=== PATIENT | male | born 1950 | race Caucasian/White ===

== ENCOUNTER 2019-08-13 11:17 | Emergency (ER) | payer MEDICARE, OTHER, SELFPAY ==
[2019-08-13 11:32] VITALS: BP 155/78; PULSE 73; RESP 13; TEMP 36.8; O2SAT 97
--- NOTE | 2019-08-13 12:01 | DI.RAD.S_ITS ---
PROCEDURE: XR ABDOMEN MIN 2V INDICATIONS: abd pain TECHNIQUE: 2 views of the abdomen were acquired. COMPARISON: None. FINDINGS: Surgical changes and devices: Prostatic seeds are seen overlying the expected location of the prostate within the pelvis. Bowel: No pneumoperitoneum. There are air-filled distended small bowel loops are evident demonstrating air fluid levels. Moderate residual stool is seen within the proximal colon. Soft tissues: No masses; visualized solid organ contours appear normal in size. No suspicious abdominal calcifications. Bones: No suspicious bony abnormalities. Moderate degenerative changes of the mid spine and pelvic joints are present. IMPRESSION: 1. No bowel obstruction. 2. Possible mild constipation. Dictated by: Paul Bean M.D. on 08/13/2019 at 12:21 Approved by: Paul Bean M.D. on 08/13/2019 at 12:22
[2019-08-13 12:17] LABS: Add Manual Diff / Slide Review NO; Basophils Absolute Auto 100 /uL (0-100); Basophils Percent Auto 0.7 % (0-2); Eosinophils Absolute Auto 0 /uL (0-450); Eosinophils Percent Auto 0.3 % (2-4); Hematocrit 50.3 % (41-53); Lymphocytes Absolute Auto 1900 /uL (1100-4500); Lymphocytes Percent Auto 16.6 % (25-40); Mean Corpuscular HGB Conc 33.7 % (30-36); Mean Corpuscular Hemoglobin 29.2 PG (26-34); Mean Corpuscular Volume 86.6 fL (80-100); Monocytes Absolute Auto 700 /uL (0-900); Neutrophils Absolute Auto 8700 /uL (1500-7000); Neutrophils Percent Auto 76.4 % (50-75); Platelet Count 318 X10^3/uL (150-400); Red Blood Cell Count 5.81 X10^6/uL (4.5-5.9); Red Cell Distribution Width 14.5 % (11.6-14.8); White Blood Cell Count 11.4 X10^3/uL (4.5-11.0)
[2019-08-13] MEDS: PANTOPRAZOLE 40 MG VIAL IV (12:20)
[2019-08-13] MEDS: ONDANSETRON 4 MG/2 ML INJ IV (12:21)
[2019-08-13] MEDS: SODIUM CHLORIDE 0.9% 1,000 ML 150 ML IV (12:21)
[2019-08-13 12:33] LABS: Alanine Aminotransferase 32 IU/L (<50); Albumin 4.5 g/dL (3.5-5.0); Albumin Globulin Ratio 1.5 (1.0-2.8); Alkaline Phosphatase 88 U/L (38-126); Amylase 73 U/L (30-110); Aspartate Aminotransferase 36 IU/L (17-59); BUN Creatinine Ratio 22.2 (6-22); Bilirubin Total 0.8 mg/dL (0.2-1.3); Blood Urea Nitrogen 20 mg/dL (9-20); Calcium 9.7 mg/dL (8.4-10.2); Carbon Dioxide 21 mmol/L (22-32); Chloride 103 mmol/L (98-107); Estimated Glomerular Filt Rate > 60.0 mL/min (>60); Glucose 116 mg/dL (80-110); HEMOLYSIS 23 (0-50); Lipase 80 U/L (23-300); Potassium 4.2 mmol/L (3.4-5.1); Sodium 137 mmol/L (137-145); Total Protein 7.5 g/dL (6.3-8.2)
--- NOTE | 2019-08-13 12:45 | ED_ITS ---
HPI - Abdominal Pain <JASPAL Hackett - Last Filed: 08/13/19 17:49> General Chief Complaint: Abdominal Pain Stated Complaint: stomach pain and anxiety Time Seen by Provider: 08/13/19 11:34 Source: patient Mode of arrival: Ambulatory Limitations: no limitations History of Present Illness HPI narrative: The patient is a 68-year-old male who presents with a chief complaint of abdominal pain. He states he has had abdominal pain for several weeks at this point. States he has also 7 from anxiety and has been seen at [facility] on July 18 and for anxiety. He complains of changes in his stools for the past 4 weeks or so, has seen his primary care provider Dr. Veronica for this. He states that he did stool testing, that came back positive, but he is not sure what is positive. He states that he got a letter stating that he needs to schedule an endoscopy or colonoscopy. He states that his pain was really bad today, but he does not want to take medication for it. He has not tried anything to feel better. He states his last bowel movement was this morning. He denies any vomiting but complains of nausea. He denies any dysuria urgency or frequency. He states he does have a history of a cholecystectomy as well as prostate cancer. He states that his pain has been ongoing for the past several weeks and is centered around his abdomen. He states he has a known umbilical hernia. The patient is a difficult, unclear historian and is unable to tell me exactly what brought him to the emergency department today, but makes it very clear that he does not want me to start him on SSRIs or BuSpar as these medications had negative side effects. Related Data Previous Rx's Medication Instructions Recorded hydroxyzine pamoate 50 mg PO TID PRN #14 cap 08/13/19 ondansetron 4 mg PO Q6H PRN #14 tab 08/13/19 Review of Systems <JASPAL Hackett - Last Filed: 08/13/19 17:49> Review of Systems Narrative: GENERAL: Denies chills, fatigue, malaise, fever, sweats. HEENT: Denies sinus pain, ear pain, sore throat, difficulty swallowing, dizziness. RESPIRATORY: Denies dyspnea, cough, wheezing, hemoptysis, sputum. CARDIOVASCULAR: Denies chest pain, palpitations, orthopnea, edema, GASTROINTESTINAL: See HPI : Denies dysuria, frequency, incontinence, hematuria, urinary retention. MUSCULOSKELETAL: denies weakness, joint pain, or bony pain SKIN: Denies rash, skin lesions, or other NEUROLOGIC: Denies weakness, headache, numbness, change in speech, confusion, seizures, incoordination. PSYCHIATRIC: See HPI 12 point review of systems is negative except for those stated above Patient History <JASPAL Hackett - Last Filed: 08/13/19 17:49> Medical History (Updated 08/13/19 @ 15:15 by JASPAL Hackett) Chronic eczema (Acute) Exam <JASPAL Hackett - Last Filed: 08/13/19 17:49> Narrative Exam Narrative: GENERAL: Obese male pacing around room HEAD: Atraumatic. Normocephalic. No temporal or scalp tenderness. EYES: Pupils equal round and reactive. Extraocular motions intact. No scleral icterus. No injection or drainage. ENT: Nose without bleeding, purulent drainage or septal hematoma. Throat without erythema, tonsillar hypertrophy or exudate. Uvula midline. Airway patent. NECK: Trachea midline. No JVD or lymphadenopathy. Supple, nontender, no meningeal signs. CARDIOVASCULAR: Regular rate and rhythm without murmurs, gallops, or rubs. RESPIRATORY: Clear to auscultation. Breath sounds equal bilaterally. No wheezes, rales, or rhonchi. No cough. No increased respiratory effort stridor. GASTROINTESTINAL: Abdomen soft, active bowel sounds all 4 quadrants, nondistended. No hepato-splenomegaly, or palpable masses. No guarding. No pain at McBurney's point pain diffuse tenderness to palpation. EXTREMITIES: No clubbing, cyanosis, or edema. No joint tenderness, effusion, or edema noted. BACK: Nontender without deformity or crepitance. No flank tenderness. NEURO: AOx3. SKIN: No rash or erythema. Initial Vital Signs Initial Vital Signs: Vital Signs Temperature 98.3 F 08/13/19 11:32 Pulse Rate 73 08/13/19 11:32 Respiratory Rate 13 08/13/19 11:32 Blood Pressure 155/78 H 08/13/19 11:32 Pulse Oximetry 97 08/13/19 11:32 <DO Theresa Uriostegui Last Filed: 08/16/19 07:24> Initial Vital Signs Initial Vital Signs: Vital Signs Temperature 98.3 F 08/13/19 11:32 Pulse Rate 73 08/13/19 11:32 Respiratory Rate 13 08/13/19 11:32 Blood Pressure 155/78 H 08/13/19 11:32 Pulse Oximetry 97 08/13/19 11:32 Course <JOSE Hackett-BC - Last Filed: 08/13/19 17:49> Orders Ordered: Discontinued Medications Al Hydrox/Mg Hydrox/Simethicone 20 ml/ Lidocaine HCl 15 ml 0 ml PO NOW ONE Stop: 08/13/19 14:22 Last Admin: 08/13/19 14:46 Dose: 15 ml Documented by: SADIA Hydroxyzine Pamoate (Vistaril) 50 mg PO NOW ONE Stop: 08/13/19 14:20 Last Admin: 08/13/19 14:46 Dose: 50 mg Documented by: SADIA Sodium Chloride (Normal Saline 0.9%) 1,000 mls @ 150 mls/hr IV CONT PIPPA Last Infusion: 08/13/19 15:51 Dose: 150 mls/hr Documented by: Admin: 08/13/19 12:21 Dose: 150 mls/hr Documented by: SADIA Magnesium Citrate (Magnesium Citrate) 300 ml PO NOW ONE Stop: 08/13/19 15:16 Last Admin: 08/13/19 15:51 Dose: 300 ml Documented by: SADIA Morphine Sulfate (Morphine) 4 mg IV NOW ONE Stop: 08/13/19 13:15 Last Admin: 08/13/19 13:30 Dose: 4 mg Documented by: SADIA Ondansetron HCl (Zofran) 4 mg IV NOW ONE Stop: 08/13/19 12:02 Last Admin: 08/13/19 12:21 Dose: 4 mg Documented by: SADIA Pantoprazole Sodium (Protonix) 40 mg IV NOW ONE Stop: 08/13/19 12:02 Last Admin: 08/13/19 12:20 Dose: 40 mg Documented by: SADIA Simethicone (Mylicon) 80 mg PO QID PRN PRN Reason: Flatulence Last Admin: 08/13/19 14:46 Dose: 80 mg Documented by: SADIA Vital Signs Vital signs: Vital Signs - 8 hr 08/13/19 11:32 08/13/19 15:53 Temperature 98.3 F Pulse Rate 73 68 Respiratory Rate 13 12 Blood Pressure 155/78 H Blood Pressure [Right Arm] 150/68 H Pulse Oximetry 97 98 <Antonia Araiza, - Last Filed: 08/16/19 07:24> Orders Ordered: Discontinued Medications Al Hydrox/Mg Hydrox/Simethicone 20 ml/ Lidocaine HCl 15 ml 0 ml PO NOW ONE Stop: 08/13/19 14:22 Last Admin: 08/13/19 14:46 Dose: 15 ml Documented by: SADIA Hydroxyzine Pamoate (Vistaril) 50 mg PO NOW ONE Stop: 08/13/19 14:20 Last Admin: 08/13/19 14:46 Dose: 50 mg Documented by: SADIA Sodium Chloride (Normal Saline 0.9%) 1,000 mls @ 150 mls/hr IV CONT PIPPA Last Infusion: 08/13/19 15:51 Dose: 150 mls/hr Documented by: Admin: 08/13/19 12:21 Dose: 150 mls/hr Documented by: SADIA Magnesium Citrate (Magnesium Citrate) 300 ml PO NOW ONE Stop: 08/13/19 15:16 Last Admin: 08/13/19 15:51 Dose: 300 ml Documented by: SADIA Morphine Sulfate (Morphine) 4 mg IV NOW ONE Stop: 08/13/19 13:15 Last Admin: 08/13/19 13:30 Dose: 4 mg Documented by: SADIA Ondansetron HCl (Zofran) 4 mg IV NOW ONE Stop: 08/13/19 12:02 Last Admin: 08/13/19 12:21 Dose: 4 mg Documented by: SADIA Pantoprazole Sodium (Protonix) 40 mg IV NOW ONE Stop: 08/13/19 12:02 Last Admin: 08/13/19 12:20 Dose: 40 mg Documented by: SADIA Simethicone (Mylicon) 80 mg PO QID PRN PRN Reason: Flatulence Last Admin: 08/13/19 14:46 Dose: 80 mg Documented by: SADIA Vital Signs Vital signs: Vital Signs - 8 hr 08/13/19 11:32 08/13/19 15:53 Temperature 98.3 F Pulse Rate 73 68 Respiratory Rate 13 12 Blood Pressure 155/78 H Blood Pressure [Right Arm] 150/68 H Pulse Oximetry 97 98 MDM - Abdominal Pain <JOSE Hackett- - Last Filed: 08/13/19 17:49> Lab Data Result diagrams: 08/13/19 12:02 08/13/19 12:02 Labs: Lab Results 08/13/19 08/13/19 Range/Units 12:02 12:02 WBC 11.4 H (4.5-11.0) X10^3/uL RBC 5.81 (4.5-5.9) X10^6/uL Hgb 17.0 (13.5-17.5) g/dL Hct 50.3 (41-53) % MCV 86.6 (80-100) fL MCH 29.2 (26-34) PG MCHC 33.7 (30-36) % RDW 14.5 (11.6-14.8) % Plt Count 318 (150-400) X10^3/uL Neut % (Auto) 76.4 H (50-75) % Lymph % (Auto) 16.6 L (25-40) % [place] % (Auto) 6.0 (3-14) % Eos % (Auto) 0.3 L (2-4) % Baso % (Auto) 0.7 (0-2) % Neut # (Auto) 8700 H (5971-3743) /uL Lymph # (Auto) 1900 (7510-1600) /uL [place] # (Auto) 700 (0-900) /uL Eos # (Auto) 0 (0-450) /uL Baso # (Auto) 100 (0-100) /uL Sodium 137 (137-145) mmol/L Potassium 4.2 (3.4-5.1) mmol/L Chloride 103 (98-107) mmol/L Carbon Dioxide 21 L (22-32) mmol/L BUN 20 (9-20) mg/dL Creatinine 0.90 (0.66-1.25) mg/dL Estimated GFR > 60.0 (>60) mL/min BUN/Creatinine Ratio 22.2 H (6-22) Glucose 116 H (80-110) mg/dL Calcium 9.7 (8.4-10.2) mg/dL Total Bilirubin 0.8 (0.2-1.3) mg/dL AST 36 (17-59) IU/L ALT 32 (<50) IU/L Alkaline Phosphatase 88 (38-126) U/L Total Protein 7.5 (6.3-8.2) g/dL Albumin 4.5 (3.5-5.0) g/dL Globulin 3.0 (1.7-4.1) g/dL Albumin/Globulin Ratio 1.5 (1.0-2.8) Amylase 73 (30-110) U/L Lipase 80 (23-300) U/L Point of care testing: Urine Dip Bedside Urine Glucose Negative Bedside Urine Bilirubin - Negative Bedside Urine Ketone +/- 5 Urine Specific [place] 1.005 Bedside Urine Occult Blood - Negative Bedside Urine pH 7.0 Bedside Urine Protein - Negative Bedside Urine Urobilinogen - Negative Bedside Urine Nitrite - Negative Bedside Urine Leukocytes - Negative Esterase Imaging Data Abdominal x-ray: Radiologist's impression: CT scan - abdomen: Radiologist's impression: [place] [address] CT Scan Report Signed Patient: Boris Humphreys PMR#: [id number] : 1950Acct:[id number] Age/Sex: 68 / MDate of Service: 08/13/19 Loc: ED Accession Number: [id number] Procedure: CT abdomen pelvis w con Ordering Provider: Antonia Cooper BRIDGE MAINTAINER-BC PROCEDURE: CT ABDOMEN PELVIS W CON INDICATIONS: abd pain TECHNIQUE: After the administration of oral and intravenous contrast, 5 mm thick sections acquired from the diaphragms to the symphysis. 5 mm thick coronal and sagittal reformats were performed. For radiation dose reduction, the following was used: automated exposure control, adjustment of mA and/or kV according to patient size. COMPARISON: None. FINDINGS: Image quality: Excellent. ABDOMEN: Lung bases: Lung bases are clear. Heart size is normal. Solid organs: Liver is normal in size and enhancement. Biliary system is non- dilated. Pancreas enhances normally. Spleen is normal in size and enhancement. No adrenal nodules. Kidneys are normal in size and enhancement, without hydronephrosis. Peritoneum and bowel: The stomach is unremarkable. The small bowel loops are nondilated. Prominent diverticulum appears to be present involving the 2nd portion of the duodenum. The colon is grossly within normal limits. However, a distal colonic diver ticulosis is evident without surrounding inflammation to suggest diverticulitis. No free fluid, loculated fluid collection or free air is evident. There is a moderate-sized periumbilical hernia. An additional small supraumbilical ventral hernia is also evident. Nodes and vessels: No retroperitoneal or mesenteric adenopathy. Aorta and inferior vena cava are normal in caliber. Incidental note is made of a retroaortic left renal vein. Bones: No acute fracture or suspicious osseous lesion is evident. Moderate multilevel degenerative changes of the mid spine are more prominent involving the lower lumbar spine and predominantly seen involving the facet joints. PELVIS: Genitourinary: Bladder wall thickness is normal. Prostatic seeds are seen within the prostate which is not enlarged. A penile calcification is incidentally noted. Miscellaneous: No inguinal hernias or adenopathy. No free fluid or loculated fluid collection is appreciated. There may be postoperative changes within the right inguinal region. A few prominent vessels within this region are identified with areas of mild stranding. No loculated fluid collections are appreciated. Bones: No suspicious bony lesions. No acute pelvic fracture is identified. Moderate degenerative changes of both hips are present. There also are moderate degenerative changes of the other pelvic joints. IMPRESSION: 1. No definite acute abnormality within the abdomen or pelvis. 2. Distal colonic diverticulosis without diverticulitis. 3. No bowel obstruction. 4. Fat-containing periumbilical and small supraumbilical ventral hernias. Dictated by: Paul Bean M.D. on 08/13/2019 at 13:06 Approved by: Paul Bean M.D. on 08/13/2019 at 13:[address] [facility] Narrative Medical decision making narrative: The patient is a 68-year-old male who presents with a chief complaint of 3-4 weeks of abdominal pain. He has been to an outside facility twice for this last month. He has no signs of systemic illness, no fever, no leukocytosis. X-ray shows no small-bowel obstruction, but constipation. Given the patient's continued pain, I did obtain a CT which had no acute findings. The patient is very perseverative, tangential and very anxious in the emergency department the declines any anxiety medications. I believe that his symptoms are exacerbated by his anxiety. I discussed at length dietary changes including high-fiber diet, plenty of water etc I did give him magnesium citrate on discharge. I also given prescription of Zofran. Encouraged strict PCP follow-up the next few days. Discussed return precautions of inability keep down fluids, abdominal pain with fever, concern of heart attack or stroke. Patient and friend state understanding of return precautions as well as follow-up care and have no questions or concerns upon discharge. <Antonia Araiza, - Last Filed: 08/16/19 07:24> Lab Data Labs: Lab Results 08/13/19 08/13/19 Range/Units 12:02 12:02 WBC 11.4 H (4.5-11.0) X10^3/uL RBC 5.81 (4.5-5.9) X10^6/uL Hgb 17.0 (13.5-17.5) g/dL Hct 50.3 (41-53) % MCV 86.6 (80-100) fL MCH 29.2 (26-34) PG MCHC 33.7 (30-36) % RDW 14.5 (11.6-14.8) % Plt Count 318 (150-400) X10^3/uL Neut % (Auto) 76.4 H (50-75) % Lymph % (Auto) 16.6 L (25-40) % [place] % (Auto) 6.0 (3-14) % Eos % (Auto) 0.3 L (2-4) % Baso % (Auto) 0.7 (0-2) % Neut # (Auto) 8700 H (0560-2080) /uL Lymph # (Auto) 1900 (9763-9280) /uL [place] # (Auto) 700 (0-900) /uL Eos # (Auto) 0 (0-450) /uL Baso # (Auto) 100 (0-100) /uL Sodium 137 (137-145) mmol/L Potassium 4.2 (3.4-5.1) mmol/L Chloride 103 (98-107) mmol/L Carbon Dioxide 21 L (22-32) mmol/L BUN 20 (9-20) mg/dL Creatinine 0.90 (0.66-1.25) mg/dL Estimated GFR > 60.0 (>60) mL/min BUN/Creatinine Ratio 22.2 H (6-22) Glucose 116 H (80-110) mg/dL Calcium 9.7 (8.4-10.2) mg/dL Total Bilirubin 0.8 (0.2-1.3) mg/dL AST 36 (17-59) IU/L ALT 32 (<50) IU/L Alkaline Phosphatase 88 (38-126) U/L Total Protein 7.5 (6.3-8.2) g/dL Albumin 4.5 (3.5-5.0) g/dL Globulin 3.0 (1.7-4.1) g/dL Albumin/Globulin Ratio 1.5 (1.0-2.8) Amylase 73 (30-110) U/L Lipase 80 (23-300) U/L Point of care testing: Urine Dip Bedside Urine Glucose Negative Bedside Urine Bilirubin - Negative Bedside Urine Ketone +/- 5 Urine Specific [place] 1.005 Bedside Urine Occult Blood - Negative Bedside Urine pH 7.0 Bedside Urine Protein - Negative Bedside Urine Urobilinogen - Negative Bedside Urine Nitrite - Negative Bedside Urine Leukocytes - Negative Esterase Discharge Plan Departure Patient Disposition: Home Clinical Impression: Anxiety Abdominal pain Qualifiers: Abdominal location: generalized Qualified Code(s): R10.84 - Generalized abdominal pain Constipation Qualifiers: Constipation type: other constipation type Qualified Code(s): K59.09 - Other constipation Discharge Date/Time: 08/13/19 15:55 Instructions: Constipation (Alternative Therapy), DI for Abdominal Pain-Adult, DI for Constipation, DI for Anxiety -- Adult Activity Restrictions/Additional Instructions: Please follow up with primary care provider in the next few days. He can also follow up with somebody in the clinic. Your imaging today came back normal, other than constipation. We have given you a dose of constipation medication to take when you get home. Be sure to increase her fiber intake, you can take a supplement such as MiraLax and be sure your hydrated. I have given you medication to take as needed for anxiety. Be aware this can be sedating. Do not take it along with Benadryl. I have also given you a prescription for nausea. Please come back to emergency department for any acute concerns such as concern of heart attack or stroke, thoughts of hurting herself or anybody Prescriptions: New ondansetron 4 mg tablet,disintegrating 4 mg PO Q6H PRN (Reason: nausea and vomiting) Qty: 14 RF: 0 hydroxyzine pamoate 50 mg capsule 50 mg PO TID PRN (Reason: anxiety) Qty: 14 RF: 0 Referrals: Miki Veronica MD [Non-Staff] -
--- NOTE | 2019-08-13 13:15 | DI.CT.S_ITS ---
PROCEDURE: CT ABDOMEN PELVIS W CON INDICATIONS: abd pain TECHNIQUE: After the administration of oral and intravenous contrast, 5 mm thick sections acquired from the diaphragms to the symphysis. 5 mm thick coronal and sagittal reformats were performed. For radiation dose reduction, the following was used: automated exposure control, adjustment of mA and/or kV according to patient size. COMPARISON: None. FINDINGS: Image quality: Excellent. ABDOMEN: Lung bases: Lung bases are clear. Heart size is normal. Solid organs: Liver is normal in size and enhancement. Biliary system is non-dilated. Pancreas enhances normally. Spleen is normal in size and enhancement. No adrenal nodules. Kidneys are normal in size and enhancement, without hydronephrosis. Peritoneum and bowel: The stomach is unremarkable. The small bowel loops are nondilated. Prominent diverticulum appears to be present involving the 2nd portion of the duodenum. The colon is grossly within normal limits. However, a distal colonic diverticulosis is evident without surrounding inflammation to suggest diverticulitis. No free fluid, loculated fluid collection or free air is evident. There is a moderate-sized periumbilical hernia. An additional small supraumbilical ventral hernia is also evident. Nodes and vessels: No retroperitoneal or mesenteric adenopathy. Aorta and inferior vena cava are normal in caliber. Incidental note is made of a retroaortic left renal vein. Bones: No acute fracture or suspicious osseous lesion is evident. Moderate multilevel degenerative changes of the mid spine are more prominent involving the lower lumbar spine and predominantly seen involving the facet joints. PELVIS: Genitourinary: Bladder wall thickness is normal. Prostatic seeds are seen within the prostate which is not enlarged. A penile calcification is incidentally noted. Miscellaneous: No inguinal hernias or adenopathy. No free fluid or loculated fluid collection is appreciated. There may be postoperative changes within the right inguinal region. A few prominent vessels within this region are identified with areas of mild stranding. No loculated fluid collections are appreciated. Bones: No suspicious bony lesions. No acute pelvic fracture is identified. Moderate degenerative changes of both hips are present. There also are moderate degenerative changes of the other pelvic joints. IMPRESSION: 1. No definite acute abnormality within the abdomen or pelvis. 2. Distal colonic diverticulosis without diverticulitis. 3. No bowel obstruction. 4. Fat-containing periumbilical and small supraumbilical ventral hernias. Dictated by: Paul Bean M.D. on 08/13/2019 at 13:06 Approved by: Paul Bean M.D. on 08/13/2019 at 13:12
[2019-08-13] MEDS: MORPHINE 4 MG/ML INJ IV (13:30)
[2019-08-13] MEDS: hydrOXYzine pamoate 25 MG CAPSULE 50 MG PO (14:46)
[2019-08-13] MEDS: MAG HYDROX/ALUMINUM/SIMETH SUS 20 ML, LIDOCAINE VISCOUS 2% 15 ML PO (14:46)
[2019-08-13] MEDS: SIMETHICONE 80 MG TABLET PO (14:46)
--- NOTE | 2019-08-13 14:58 | PC.NURSE ---
Patient anxious. I am so overwhelmed. It is hard for me to go to the store. I am just worrying about everything. Patient has friend at bedside that is providing helpful and supportive reassurance. Encouraged patient to focus on the things he can control at the present time such as his diet to assist in his bowel movements. Discussed with patient how worrying and anxiety can add to his stomach pains and physical symptoms
[2019-08-13] MEDS: MAGNESIUM CITRATE 300 ML SOLUTION PO (15:51)
[2019-08-13 15:53] VITALS: BP 150/68; PULSE 68; RESP 12; O2SAT 98
== END 2019-08-13 15:55 | disposition home or self-care (01) ==
PROVIDERS: Emergency Provider Nurse Practitioner Family
DX: F41.9 Anxiety disorder, unspecified (principal); R10.84 Generalized abdominal pain; K59.09 Other constipation; R79.89 Other specified abnormal findings of blood chemistry
CPT/HCPCS: 36415; 74019; 74177; 80053; 81003; 82150; 83690; 85025; 96374; 96375; 96376; 99283; 99285; C9113; J2270; J2405; Q9967

== ENCOUNTER 2019-08-22 11:45 | Emergency (ER) | payer MEDICARE, OTHER, SELFPAY ==
[2019-08-22 13:00] VITALS: BP 152/86; PULSE 73; RESP 28; TEMP 36; O2SAT 98
[2019-08-22 15:00] VITALS: BP 140/73; PULSE 64; RESP 17; O2SAT 98
--- NOTE | 2019-08-22 15:07 | ED_ITS ---
HPI - Anxiety <Qi SequeiraRYAN - Last Filed: 08/22/19 21:14> General Chief Complaint: Anxiety Stated Complaint: Severe stomach pain Time Seen by Provider: 08/22/19 14:46 Mode of arrival: Ambulatory History of Present Illness HPI narrative: 68-year-old male with a history of anxiety presents emergency department complaining of increased anxiety, epigastric pain, abdominal discomfort. He states he has had multiple episodes of anxiety over the past month and was seated at [facility] on Jul 18 and and here on 08/13 for the same (abdominal CT and abdominal x-ray mild constipation without acute etiology). Patient was discharged with hydroxyzine which he has been taking over the past week in states that this has helped him tremendously. He also states that he has other things in the works to do with his anxiety but does not elaborate on this. He states his recently and he has been having increased bouts of anxiety any is ?unsure with anxiety feels like?. Patient states he woke up this morning feeling extremely anxious and has not eaten any food sent this morning which he feels that this is contributing to his abdominal pain. Patient then felt a sudden pain in his right lower quadrant and had worse amber anxiety that made him shake, he then went over to the neighbor's who brought him here. He states his anxiety has increased as he has been waiting in the waiting room for the past few hours. He denies any nausea, vomiting, diarrhea, chest pain, shortness of breath, dizziness, vision changes, fevers, or other concerns. Patient states he has had a normal bowel movement this morning and has been taking stool softeners for the past week which have been helping. Patient denies a SI or HI Related Data Home Medications Medication Instructions Recorded Confirmed pravastatin 10 mg tablet 10 mg PO DAILY 08/24/19 08/24/19 tamsulosin 0.4 mg capsule 0.4 mg PO DAILY 08/24/19 08/24/19 Previous Rx's Medication Instructions Recorded hydroxyzine pamoate 50 mg PO TID PRN #14 cap 08/13/19 ondansetron 4 mg PO Q6H PRN #14 tab 08/13/19 hydroxyzine HCl 25 mg PO TID PRN #30 tab 08/22/19 Allergies Allergy/AdvReac Type Severity Reaction Status Date / Time No Known Drug Allergies Allergy Verified 08/24/19 11:35 Review of Systems <RYAN Ortega - Last Filed: 08/22/19 21:14> Review of Systems Narrative: REVIEW OF SYSTEMS: GENERAL: Denies fever, chills, malaise, or wt. loss. HENT: No head trauma, sore throat, or dysphagia. EYES: No loss of vision, double vision, eye pain, or irritation. CARDIOVASCULAR: No chest pain, palpitations, or orthopnea. RESPIRATORY: No shortness of breath or cough. GASTROINTESTINAL: Complains of abdominal discomfort, see HPI GENITOURINARY: No flank pain, urinary incontinence, hesitancy, frequency, or dysuria. MUSCULOSKELETAL: No pain, weakness, or trauma. INTEGUMENTARY: No rash, lesions, or pruritus. NEURO: No numbness, tingling, memory loss, confusion, or headaches. PSYCH: Complains of increased anxiety, see HPI. Patient History <RYAN Ortega - Last Filed: 08/22/19 21:14> Medical History Chronic eczema (Acute) Substance Use Type: does not use Exam <RYAN Ortega - Last Filed: 08/22/19 21:14> Narrative Exam Narrative: PHYSICAL EXAMINATION: GENERAL: Well groomed, alert, and cooperative. Answers questions promptly and appropriately. Vital signs noted. HENT: Normocephalic, atraumatic. Hearing intact. Oral mucosa is pink and moist. EYES: Conjunctiva pink, sclera white, no periorbital swelling. CARDIOVASCULAR: S1 and S2 sounds normal. Regular rate and rhythm, no murmurs, clicks, or bruits. No pedal edema. RESPIRATORY: Normal respiratory rate, trachea midline, airway patent. No stridor, nasal flaring or accessory muscle use. Lungs are clear in all [place] without wheeze, rhonchi, or crackles. GASTROINTESTINAL: Bowel sounds normoactive. Abdomen is soft and tenderness noted to epigastric region, no tenderness to RUQ, RLQ, or LLQ. No organomegaly, no palpable masses. GENITALURINARY: No flank tenderness. MUSCULOSKELETAL: Normal gait and coordination. Equal tone and mass bilaterally. EXTREMITIES: CMS intact, no pedal edema. SKIN: Warm, dry, soft, appropriate color for ethnicity. No lesions, rashes, or wounds. NEURO: Alert and Oriented X 3. Good coordination. No ataxia, or sensory deficits, or cognitive issues. PSYCH: Patient has pressured speech, his hands are shaking when he started describing his anxiety, however, his tremor ceased when he is talking. Patient appears extremely anxious. Initial Vital Signs Initial Vital Signs: Vital Signs Temperature 96.8 F L 08/22/19 13:00 Pulse Rate 73 08/22/19 13:00 Respiratory Rate 28 H 08/22/19 13:00 Blood Pressure 152/86 H 08/22/19 13:00 Pulse Oximetry 98 08/22/19 13:00 <Antonia Araiza DO - Last Filed: 08/27/19 18:12> Initial Vital Signs Initial Vital Signs: Vital Signs Temperature 96.8 F L 08/22/19 13:00 Pulse Rate 73 08/22/19 13:00 Respiratory Rate 28 H 08/22/19 13:00 Blood Pressure 152/86 H 08/22/19 13:00 Pulse Oximetry 98 08/22/19 13:00 Course <RYAN Ortega - Last Filed: 08/22/19 21:14> Course Course Narrative: Patient was given 0.5 mg of Ativan IV, he states his symptoms resolved completely after this and he is feeling much better. He denies any abdominal pain at this time. He was given an additional 0.5mg of Ativan before discharge. His neighbor was at the bedside giving him a ride home. Orders Ordered: Discontinued Medications Lorazepam (Ativan) 0.5 mg IV NOW ONE Stop: 08/22/19 15:05 Last Admin: 08/22/19 15:43 Dose: 0.5 mg Documented by: THOMAS Lorazepam (Ativan) 0.5 mg IV NOW ONE Stop: 08/22/19 16:45 Last Admin: 08/22/19 17:02 Dose: 0.5 mg Documented by: SADIA Consultations Consultation #1: Patient staffed with Dr. Araiza Vital Signs Vital signs: Vital Signs - 8 hr 08/22/19 15:00 08/22/19 17:23 08/22/19 17:25 Pulse Rate 64 74 74 Respiratory Rate 17 16 18 Blood Pressure 110/78 Blood Pressure [Right Arm] 140/73 116/78 Pulse Oximetry 98 97 97 <Antonia Araiza DO - Last Filed: 08/27/19 18:12> Orders Ordered: Discontinued Medications Lorazepam (Ativan) 0.5 mg IV NOW ONE Stop: 08/22/19 15:05 Last Admin: 08/22/19 15:43 Dose: 0.5 mg Documented by: THOMAS Lorazepam (Ativan) 0.5 mg IV NOW ONE Stop: 08/22/19 16:45 Last Admin: 08/22/19 17:02 Dose: 0.5 mg Documented by: SADIA Vital Signs Vital signs: Vital Signs - 8 hr 08/22/19 15:00 08/22/19 17:23 08/22/19 17:25 Pulse Rate 64 74 74 Respiratory Rate 17 16 18 Blood Pressure 110/78 Blood Pressure [Right Arm] 140/73 116/78 Pulse Oximetry 98 97 97 MDM - Anxiety <RYAN Ortega - Last Filed: 08/22/19 21:14> Medical Records Attestation: I reviewed the patient's medical records. Lab Data Attestation: I reviewed the patient's lab results. Result diagrams: 08/22/19 15:15 08/22/19 15:15 Labs: Lab Results 08/22/19 08/22/19 Range/Units 15:15 15:15 WBC 8.1 (4.5-11.0) X10^3/uL RBC 5.54 (4.5-5.9) X10^6/uL Hgb 16.3 (13.5-17.5) g/dL Hct 47.5 (41-53) % MCV 85.8 (80-100) fL MCH 29.4 (26-34) PG MCHC 34.3 (30-36) % RDW 14.4 (11.6-14.8) % Plt Count 298 (150-400) X10^3/uL Neut % (Auto) 65.0 (50-75) % Lymph % (Auto) 25.8 (25-40) % [place] % (Auto) 7.9 (3-14) % Eos % (Auto) 0.5 L (2-4) % Baso % (Auto) 0.8 (0-2) % Neut # (Auto) 5300 (2059-6559) /uL Lymph # (Auto) 2100 (1269-3020) /uL [place] # (Auto) 600 (0-900) /uL Eos # (Auto) 0 (0-450) /uL Baso # (Auto) 100 (0-100) /uL Sodium 138 (137-145) mmol/L Potassium 3.7 (3.4-5.1) mmol/L Chloride 106 (98-107) mmol/L Carbon Dioxide 18 L (22-32) mmol/L BUN 18 (9-20) mg/dL Creatinine 1.00 (0.66-1.25) mg/dL Estimated GFR > 60.0 (>60) mL/min BUN/Creatinine Ratio 18.0 (6-22) Glucose 104 (80-110) mg/dL Calcium 9.5 (8.4-10.2) mg/dL Total Bilirubin 0.9 (0.2-1.3) mg/dL AST 32 (17-59) IU/L ALT 29 (<50) IU/L Alkaline Phosphatase 82 (38-126) U/L Troponin I < 0.012 (0.01-0.034) ng/mL Total Protein 7.0 (6.3-8.2) g/dL Albumin 4.4 (3.5-5.0) g/dL Globulin 2.6 (1.7-4.1) g/dL Albumin/Globulin Ratio 1.7 (1.0-2.8) Imaging Data Chest x-ray: Radiologist's impression: [address] [address] XRay Report Signed Patient: Boris Humphreys PMR#: [id number] : 1950Acct:[id number] Age/Sex: 68 / MDate of Service: 08/22/19 Loc: ED Accession Number: [id number] Procedure: XR chest 1V Ordering Provider: Qi Sequeira PROCEDURE: XR CHEST 1V INDICATIONS: Epigastric pain, anxiety TECHNIQUE: One view of the chest was acquired. COMPARISON: [facility], CR, XR ABDOMEN MIN 2V, 08/13/2019, 12:31. FINDINGS: Surgical changes and devices: None. Lungs and pleura: Lungs are clear. No pleural effusions or pneumothorax. Mediastinum: The cardiac contours are within normal limits. The aorta demonstrates calcification and tortuosity. Bones and chest wall: Age-appropriate bony degenerative changes are seen. No suspicious bony lesions. Overlying soft tissues appear unremarkable. IMPRESSION: Portable chest within normal limits. Dictated by: Campos Shipman M.D. on 08/22/2019 at 14:26 Approved by: Campos Shipman M.D. on 08/22/2019 at 14:27 ECG Data Interpretation: EKG was given to Dr. Araiza for interpretation per protocol. MDM Narrative Medical decision making narrative: This is a 68-year-old male with a history of significant anxiety that has been seen multiple times in this ER in [facility] for similar complaints. Differential includes anxiety, cardiac etiology, GERD, acute abdominal etiology, and pulmonary etiology. Most likely anxiety as all patient's symptoms resolved after administration of Ativan. Less likely cardiac or pulmonary etiology due to lack of chest pain, negative chest x-ray, and unremarkable labs. It is possible that occurred could play a role in his abdominal symptoms due to epigastric tenderness, however, this also resolved after administration of Ativan. An extensive conversation with patient about the importance of anxiety management and prevention. He states he is not front of SSRIs but is trying a type of acupuncture. He states he is looking into a psychiatrist this next week. Patient denies needing any resources at this time. Patient continues to deny SI or HI. Strict return precautions given for new or worsening symptoms. <Antonia Araiza, DO - Last Filed: 08/27/19 18:12> Lab Data Attestation: I reviewed the patient's lab results. Labs: Lab Results 08/22/19 08/22/19 Range/Units 15:15 15:15 WBC 8.1 (4.5-11.0) X10^3/uL RBC 5.54 (4.5-5.9) X10^6/uL Hgb 16.3 (13.5-17.5) g/dL Hct 47.5 (41-53) % MCV 85.8 (80-100) fL MCH 29.4 (26-34) PG MCHC 34.3 (30-36) % RDW 14.4 (11.6-14.8) % Plt Count 298 (150-400) X10^3/uL Neut % (Auto) 65.0 (50-75) % Lymph % (Auto) 25.8 (25-40) % [place] % (Auto) 7.9 (3-14) % Eos % (Auto) 0.5 L (2-4) % Baso % (Auto) 0.8 (0-2) % Neut # (Auto) 5300 (9889-4707) /uL Lymph # (Auto) 2100 (7958-3778) /uL [place] # (Auto) 600 (0-900) /uL Eos # (Auto) 0 (0-450) /uL Baso # (Auto) 100 (0-100) /uL Sodium 138 (137-145) mmol/L Potassium 3.7 (3.4-5.1) mmol/L Chloride 106 (98-107) mmol/L Carbon Dioxide 18 L (22-32) mmol/L BUN 18 (9-20) mg/dL Creatinine 1.00 (0.66-1.25) mg/dL Estimated GFR > 60.0 (>60) mL/min BUN/Creatinine Ratio 18.0 (6-22) Glucose 104 (80-110) mg/dL Calcium 9.5 (8.4-10.2) mg/dL Total Bilirubin 0.9 (0.2-1.3) mg/dL AST 32 (17-59) IU/L ALT 29 (<50) IU/L Alkaline Phosphatase 82 (38-126) U/L Troponin I < 0.012 (0.01-0.034) ng/mL Total Protein 7.0 (6.3-8.2) g/dL Albumin 4.4 (3.5-5.0) g/dL Globulin 2.6 (1.7-4.1) g/dL Albumin/Globulin Ratio 1.7 (1.0-2.8) MDM Narrative Medical decision making narrative: Case was discussed with myself. Discharge Plan Departure Patient Disposition: Home Clinical Impression: Anxiety Discharge Date/Time: 08/22/19 17:32 Instructions: Anxiety Disorders, DI for Anxiety -- Adult Activity Restrictions/Additional Instructions: Thank you for entrusting me with your care today. As discussed, your EKG, chest x-ray, and lab work are not concerning for any acute issues. I have given you a prescription for hydroxyzine. I highly encourage you to follow up with your primary care provider to discuss other options on managing anxiety such as counseling, medication, acupuncture, and etc. Continue to follow up with the surgeon as planned for your colonoscopy. Return to the emergency department for new or worsening symptoms. Prescriptions: New hydroxyzine HCl 25 mg tablet 25 mg PO TID PRN (Reason: anxiety) Qty: 30 RF: 0 No Action tamsulosin 0.4 mg capsule 0.4 mg PO DAILY RF: 0 pravastatin 10 mg tablet 10 mg PO DAILY RF: 0 ondansetron 4 mg tablet,disintegrating 4 mg PO Q6H PRN (Reason: nausea and vomiting) Qty: 14 RF: 0 hydroxyzine pamoate 50 mg capsule 50 mg PO TID PRN (Reason: anxiety) Qty: 14 RF: 0 Referrals: Miki Veronica MD [Primary Care Provider] -
[2019-08-22 15:25] LABS: Add Manual Diff / Slide Review NO; Basophils Absolute Auto 100 /uL (0-100); Basophils Percent Auto 0.8 % (0-2); Eosinophils Absolute Auto 0 /uL (0-450); Eosinophils Percent Auto 0.5 % (2-4); Hematocrit 47.5 % (41-53); Hemoglobin 16.3 g/dL (13.5-17.5); Lymphocytes Absolute Auto 2100 /uL (1100-4500); Lymphocytes Percent Auto 25.8 % (25-40); Mean Corpuscular HGB Conc 34.3 % (30-36); Mean Corpuscular Hemoglobin 29.4 PG (26-34); Mean Corpuscular Volume 85.8 fL (80-100); Monocytes Absolute Auto 600 /uL (0-900); Monocytes Percent Auto 7.9 % (3-14); Neutrophils Absolute Auto 5300 /uL (1500-7000); Platelet Count 298 X10^3/uL (150-400); Red Blood Cell Count 5.54 X10^6/uL (4.5-5.9); Red Cell Distribution Width 14.4 % (11.6-14.8); White Blood Cell Count 8.1 X10^3/uL (4.5-11.0)
[2019-08-22] MEDS: LORazepam 2 MG/ML INJ 0.5 MG IV ×2 (15:43→17:02)
[2019-08-22 15:47] LABS: Alanine Aminotransferase 29 IU/L (<50); Albumin 4.4 g/dL (3.5-5.0); Albumin Globulin Ratio 1.7 (1.0-2.8); Alkaline Phosphatase 82 U/L (38-126); Aspartate Aminotransferase 32 IU/L (17-59); Bilirubin Total 0.9 mg/dL (0.2-1.3); Blood Urea Nitrogen 18 mg/dL (9-20); Calcium 9.5 mg/dL (8.4-10.2); Carbon Dioxide 18 mmol/L (22-32); Chloride 106 mmol/L (98-107); Estimated Glomerular Filt Rate > 60.0 mL/min (>60); Globulin 2.6 g/dL (1.7-4.1); Glucose 104 mg/dL (80-110); HEMOLYSIS < 15 (0-50); Potassium 3.7 mmol/L (3.4-5.1); Sodium 138 mmol/L (137-145)
[2019-08-22 15:58] LABS: Troponin I < 0.012 ng/mL (0.01-0.034)
[2019-08-22 17:23] VITALS: BP 116/78; PULSE 74; RESP 16; O2SAT 97
[2019-08-22 17:25] VITALS: BP 110/78; PULSE 74; RESP 18; O2SAT 97
== END 2019-08-22 17:32 | disposition home or self-care (01) ==
PROVIDERS: Emergency Provider Nurse Practitioner; PCP Family Medicine
DX: F41.9 Anxiety disorder, unspecified (principal); R07.9 Chest pain, unspecified
CPT/HCPCS: 36415; 71045; 80053; 84484; 85025; 93005; 96374; 96375; 99282; 99285; J2060

== ENCOUNTER 2019-09-06 09:28 | Day surgery (SDC) | payer MEDICARE, OTHER, SELFPAY ==
[2019-09-06] VITALS (9 sets, daily range): BP systolic 111–144; BP diastolic 61–95; PULSE 53–77; RESP 11–17; TEMP 36.2–36.8; O2SAT 92–98; BMI 32.7
[2019-09-06] MEDS: SODIUM CHLORIDE 0.9% 1,000 ML 200 ML IV (10:13)
--- NOTE | 2019-09-06 10:20 | SUR.PREOP ---
Hi anxiety x2 months, has gone to the ER multiple times, of cancer 1 1/2 years ago, retired, lives alone, sister visited recently from the [facility], has begun seeing a therapist, had first visit.
--- NOTE | 2019-09-06 10:50 | PM.PREOP ---
Pre-operative Note Interval Note History & Physical reviewed/Exam performed by Physician: Yes Changes to H&P: No ASA Class (for procedural sedation): II
[2019-09-06] MEDS: fentaNYL 250 MCG/5 ML INJ IV (11:15)
[2019-09-06] MEDS: MIDAZOLAM 5 MG/5 ML VIAL IV (11:15)
--- NOTE | 2019-09-06 11:30 | PM.OP.ENDO ---
Operative Date/Time/Diagnoses Date of procedure: 09/06/19 Time of procedure: 11:30 Pre-op diagnosis: Abdominal discomfort. Change in bowel habits. Post-op diagnosis: same (Extensive sigmoid diverticulosis with tortuosity.) Procedure & Clinicians Study performed: Colonoscopy Same procedure as scheduled: Yes Indications: Evaluate preop symptoms Surgeon: Miguel Mir Procedure Notes SCOAP/Timeout: Perform Procedure in detail: The patient was placed in the left lateral decubitus position and underwent IV sedation directed by the surgeon consisting of fentanyl and Versed. Digital exam was unremarkable. I could not feel his prostate well.. The scope was inserted and advanced through the rectum into the sigmoid, descending, transverse, and ascending colon. Patient had fair amount of sigmoid tortuosity with diverticulosis. Pressure was applied in order to reach the cecum. The cecum was reached identified by the ileocecal valve and the appendiceal opening. The ileocecal valve was successfully cannulated. The terminal ileum was normal in appearance. The scope was gradually brought out. No Polyps were found. The scope ultimately was retroflexed in the rectum. The appearance was normal. The scope was removed and the patient tolerated the procedure well. The prep was very good Scope withdrawal time: 8 minutes Sedation minutes: 32 Findings: diverticulosis Post-procedure Recommendations: Other recommendation (If the patient has a history of polyps he should have a repeat exam in 5 years. If no history of polyps 10 years. I do not have his prior records.) Plan for aftercare: Ultimately will probably need his umbilical hernia repaired Follow up: as needed Disposition: PACU
== END 2019-09-06 12:36 | disposition home or self-care (01) ==
PROVIDERS: Family Provider Family Medicine; PCP Family Medicine; Visit Provider Specialist
PROC: 0DJD8ZZ Inspection of Lower Intestinal Tract, Via Natural or Artificial Opening Endoscopic (ICD-10-PCS; CPT 45378; principal; 2019-09-06 10:45)
DX: K57.30 Diverticulosis of large intestine without perforation or abscess without bleeding (principal); K62.5 Hemorrhage of anus and rectum; R19.4 Change in bowel habit; K59.09 Other constipation; F41.9 Anxiety disorder, unspecified
CPT/HCPCS: 45378; 99152; 99153; J2250; J3010

== ENCOUNTER 2019-09-23 17:26 | Emergency (ER) | payer MEDICARE, OTHER, SELFPAY ==
[2019-09-23 17:46] VITALS: BP 117/68; PULSE 59; RESP 22; TEMP 37.3; O2SAT 98; BMI 33.3
--- NOTE | 2019-09-23 18:35 | ED.HA ---
HPI - Headache General Chief Complaint: Headache Stated Complaint: Headache Time Seen by Provider: 09/23/19 18:03 Source: patient Mode of arrival: EMS Limitations: no limitations History of Present Illness HPI Narrative: 68-year-old male here for evaluation of a headache. He arrived by EMS. He states that he has had a headache for the past several hours. Describes it as both sides and is pounding. He has had a headache like this in the past. He states that his headache started within the past several weeks. He has been seen at outside facilities for this. He was seen just a couple days ago at an outside facility and had a CTA of his head neck. The CT was unremarkable. They records were available for review. He states that that CTA was done for headache just like the 1 he is currently having. He has recently had changes to some of his anxiety medications. He has not seen his primary doctor in some time. He states that during this last ED visit he was given a prescription to treat headaches however he has not filled it. Related Data Home Medications Medication Instructions Recorded Confirmed pravastatin 10 mg tablet 10 mg PO DAILY 08/24/19 09/22/19 tamsulosin 0.4 mg capsule 0.4 mg PO DAILY 08/24/19 09/22/19 lorazepam 1 mg PO Q6H PRN 09/06/19 09/22/19 Previous Rx's Medication Instructions Recorded hydroxyzine pamoate 50 mg PO TID PRN #14 cap 08/13/19 ondansetron 4 mg PO Q6H PRN #14 tab 08/13/19 hydroxyzine HCl 25 mg PO TID PRN #30 tab 08/22/19 Allergies Allergy/AdvReac Type Severity Reaction Status Date / Time No Known Drug Allergies Allergy Verified 09/13/19 15:32 Review of Systems Constitutional Constitutional: Denies fever(s) and Reports headache(s) Eyes Eyes: Denies change in vision and Denies photophobia ENT Ears, Nose, Mouth, and Throat: Reports headache(s), Denies sinus pressure and Denies sore throat Cardiovascular Cardiovascular: Denies chest pain, Denies palpitations and Denies dyspnea Respiratory Respiratory: Denies dyspnea Gastrointestinal Gastrointestinal: Denies abdominal pain, Denies change in stool character and Denies vomiting Genitourinary Genitourinary: Denies dysuria Musculoskeletal Musculoskeletal: Denies myalgias and Denies arthralgias Integumentary/Breasts Skin/Breast: Denies lesions and Denies rash Neurologic Neurologic: Denies behavioral changes, Denies confusion and Reports headache(s) Psychiatric Psychiatric: Denies behavioral changes and Denies confusion Endocrine Endocrine: Denies palpitations Hematologic/Lymphatic Hematologic/Lymphatic: Denies easy bleeding and Denies easy bruising Allergic/Immunologic Allergic/Immunologic: Denies urticaria Patient History Medical History Anxiety (Acute) Chronic eczema (Acute) Diverticulosis (Acute) History of headache (Acute) History of prostate cancer (Acute ~2009) HLD (hyperlipidemia) (Acute) Hx of radiation therapy (Acute) Impaired vision (Acute) Loss or of partner (Acute) Umbilical hernia (Acute ~2018) Surgical History History of colonoscopy (Acute) History of hernia repair (Acute) Hx of cholecystectomy (Acute) Social History household members: none Smoking Status: Never smoker Smoking Status: Never smoker alcohol intake frequency: holidays/special occasions only Alcohol type: beer Substance Use Type: does not use Exam Initial Vital Signs Initial Vital Signs: Vital Signs Temperature 99.2 F 09/23/19 17:46 Pulse Rate 59 L 09/23/19 17:46 Respiratory Rate 22 09/23/19 17:46 Blood Pressure 117/68 09/23/19 17:46 Pulse Oximetry 98 09/23/19 17:46 Const General: cooperative, comfortable, well developed and well groomed Orientation: alert, awake and oriented x3 HENMT Head: normal to inspection and normocephalic Ears: TM's normal bilaterally Eyes Pupils: PERRL Chest Chest: No tenderness Resp Effort & Inspection: normal respiratory effort Auscultation: clear to auscultation bilaterally Cardio Rate: regular rate Rhythm: regular rhythm GI Inspection: non-distended Palpation: soft and No tender Back/Spine/Pelvis Back: No CVA tenderness Skin Lesions: no lesions Rashes: no rashes Neuro General: alert, awake and oriented x3 Cranial Nerves: CN's II-XI intact bilaterally Cognition: normal cognition Speech: speech normal Motor: muscle tone normal throughout Sensory Exam: no sensory deficits noted Extrem General: normal to inspection and capillary refill normal Psych Appearance: grossly normal and well kempt Scores GCS Leslie coma scale eye opening: Spontaneous Rashel coma scale verbal response: Orientated Rashel coma scale motor response: Obey commands Rashel coma scale total score: 15 Course Orders Ordered: ED Orders 09/23/19 19:[address] MANAGER - [employer] Stat Discontinued Medications Diphenhydramine HCl (Benadryl) 25 mg IV NOW ONE Stop: 09/23/19 18:37 Last Admin: 09/23/19 18:44 Dose: 25 mg Documented by: ANI Sodium Chloride (Normal Saline 0.9%) 1,000 mls @ 1,000 mls/hr IV BOLUS ONE Stop: 09/23/19 19:35 Last Infusion: 09/23/19 19:57 Dose: 0 mls/hr Documented by: Admin: 09/23/19 18:44 Dose: 1,000 mls/hr Documented by: ANI Ketorolac Tromethamine (Toradol) 30 mg IV NOW ONE Stop: 09/23/19 18:37 Last Admin: 09/23/19 18:44 Dose: 30 mg Documented by: ANI Lorazepam (Ativan) 1 mg IV NOW ONE Stop: 09/23/19 21:32 Last Admin: 09/23/19 21:45 Dose: 1 mg Documented by: CHARLES Metoclopramide HCl (Reglan) 10 mg IV NOW ONE Stop: 09/23/19 18:37 Last Admin: 09/23/19 18:44 Dose: 10 mg Documented by: ANI Vital Signs Vital signs: Vital Signs - 8 hr 09/23/19 18:51 09/23/19 19:51 09/23/19 21:13 Pulse Rate 60 46 L 50 L Respiratory Rate 25 H 19 17 Blood Pressure [Right Arm] 131/65 122/61 120/53 L Pulse Oximetry 97 96 97 09/23/19 22:37 Pulse Rate 64 Respiratory Rate 21 Blood Pressure [Right Arm] 126/64 Pulse Oximetry 97 MDM - Headache MDM Narrative Medical decision making narrative: Patient did report improvement of his symptoms after the medications. He recently had a workup of a headache that he states is very similar to the 1 that he is having currently. We will hold on radiologic studies for now. The social contact worker currently in the emergency department states that she knows this individual. She states that he has had issues with anxiety and depression since his approximately 1 and half years ago. It appears that he has had headaches like this in the past. I do have a high suspicion that his symptoms today are related to anxiety. Low suspicion for CVA or TIA. Low suspicion for ICH. Patient does have a prescription for headaches. He states that it starts with a ?S? I do suspect this is sumatriptan. I did inform him that it would not be unreasonable for him to fill this prescription and start taking it. He states he is worried about the headache returning when he goes home. He did have some recent changes to his anxiety medications. We had a long discussion with regard to this. I did tell him that occasionally these medications do have side effects when he 1st start taking them but most the time the improved. I told him that if he feels like this is potentially related to the change of his medication that he could stop taking them and do Ativan. He has taken Ativan in the past with seems to have helped his symptoms. I did inform him that if he did this he needed to talk with his mental health provider at the beginning of next week. Patient denied SI or HI. He has been admitted voluntarily in the past for mental health issues and he states he never wants to go back to a facility like that. I did offer to try to find a place voluntarily for him. He is alert oriented x3 in my opinion has capacity make decisions. He is not intoxicated. He does not want to be transferred to a mental health facility. I did inform him that unfortunately he did not meet criteria to be admitted to the hospital. He states that he is having growing concerns about his ability to take care of himself. I told him that if he felt like he needed other living situations to include assisted living that he would need to talk with his primary doctor who could help set this up as an outpatient. Patient seems fairly upset about this discussion. I once again informed him that unfortunately I would not be able to admit him to the hospital. I once again offered mental health however he declined. Unfortunately I do not feel that I can provide with the patient is asking in the emergency department. Patient was picked up by a friend. He was given return precautions and follow-up instructions. Discharge Plan Departure Patient Disposition: Home Clinical Impression: Anxiety Headache Qualifiers: Headache type: unspecified Headache chronicity pattern: unspecified pattern Intractability: not intractable Qualified Code(s): R51 - Headache Discharge Date/Time: 09/23/19 23:08 Instructions: DI for Anxiety -- Adult, DI for Headache Activity Restrictions/Additional Instructions: I recommend that you fill the prescription for the headache medication that you were given at your last emergency department visit. It would be up to you if you want to stop the medications that have been prescribed you for your anxiety and start taking just lorazepam. If you want to continue these medications that would be okay as well. On Thursday I do recommend you contact your primary provider for follow-up. You can return to the emergency department for any new or worsening symptoms Prescriptions: No Action tamsulosin 0.4 mg capsule 0.4 mg PO DAILY RF: 0 pravastatin 10 mg tablet 10 mg PO DAILY RF: 0 ondansetron 4 mg tablet,disintegrating 4 mg PO Q6H PRN (Reason: nausea and vomiting) Qty: 14 RF: 0 hydroxyzine pamoate 50 mg capsule 50 mg PO TID PRN (Reason: anxiety) Qty: 14 RF: 0 hydroxyzine HCl 25 mg tablet 25 mg PO TID PRN (Reason: anxiety) Qty: 30 RF: 0 lorazepam 1 mg Tablet 1 mg PO Q6H PRN (Reason: Anxiety) RF: 0 Referrals: Nash Mancilla MD [Primary Care Provider] -
[2019-09-23] MEDS: diphenhydrAMINE 50 MG/ML VIAL 25 MG IV (18:44)
[2019-09-23] MEDS: METOCLOPRAMIDE 10 MG/2 ML INJ IV (18:44)
[2019-09-23] MEDS: KETOROLAC 60 MG/2 ML VIAL 30 MG IV (18:44)
[2019-09-23] MEDS: SODIUM CHLORIDE 0.9% 1,000 ML 1000 ML IV (18:44)
[2019-09-23 18:51] VITALS: BP 131/65; PULSE 60; RESP 25; O2SAT 97
[2019-09-23 19:51] VITALS: BP 122/61; PULSE 46; RESP 19; O2SAT 96
--- NOTE | 2019-09-23 20:01 | CM.SWNOTE ---
Discharge Planning/Care Management [employer] REPAIRER - Staff Educator Assessment Start: 09/23/19 18:21 Freq: Status: Active Protocol: Document 09/23/19 19:43 DPL (Rec: 09/23/19 20:01 DPL [id number]) AUT[employer] CLOCKS REPAIRER/Staff Educator Assessment Start date 09/23/19 Visit Start Time 05:45 End date 09/23/19 Visit End Time 06:30 Total time Care Management spent on 45 patient visit-in minutes Presenting Problem Pt presents to the ED with severe, debilitating headache and high anxiety. He has had several ED presentations both at and [facility] for acute anxiety/panic attacks over the last several months which have been progressively intensifying. Precipitating Event(s) Pt states that these headaches began approx. 2-weeks ago following a colonoscopy procedure. When he arrived in the ED, he presented as highly anxious, tearful, stating that he didn't want to be alone feeling like this, and had called EMS to transport him. Current Behavioral Health Provider(s) Pt has been involved in acute Include Facility, Provider, Ph. # grief therapy following the of his approx. 1- year ago. He continues to see a therapist (unknown) who also manages his psychiatric medications. Psych. Hx Mental Health and Chemical Severe anxiety/depression Dependency following the of his . He has struggled with adjustment to this loss, and has grown progressively more debilitated over the last several months. Support System(s) Neighbor, sister, psychotherapist, friends. School/Work Retired Orientation (Person/Place/Time) Pt is oriented X3. Affect Tearful, anxious Thought Content - Specify/Describe Impaired focus due to severe Obsessions, Delusions, Hallucinations pain during ED visit. Thought Processes (Knhxqqh-Uwxgeejy-Vrnt Appropriate Xfjmahxt-Wzjypfzw-Cmuvzgtgxq- Rbthpjukflmgcb-Jeupcwy-Vssxemsgsnph- Thought Blocking) Speech (Vnqupa-Hach-Wootvfe-Rapid-Soft- rapid, anxious Loud-Pressured) Motor (Bhnzzb-Mimqjadak-Xmua-Other) Agitated Insight (Present-Partially Present- Present Impaired) Judgement (Intact-Impaired) Intact, although he is not taking medications as directed . He reported taking both an alprazalam and lorazapam together last evening in order to calm down from anxiousness in order to sleep. Impulse Control (Adequate-Impaired) Impaired Memory (Ezfnrotml-Efcpfx-Aswavj, Intact Impaired-Intact) Concentration (Intact-Impaired) Impaired Attention (Intact-Impaired) Impaired Behavior (Appropriate-Inappropriate) Appropriate Suicidal Ideation (Plan) No Homicidal Ideation (Plan) No Intervention AUT[employer] REPAIRER intervention was brief due to pt's acute pain, however this patient is well known to this AUT[employer] CLOCKS REPAIRER. Offered coping/ emotional support. Pt ended up falling asleep with pain interventions in ED, preventing any further discussion re: the status of his counseling and support needs. RA Plan D/C home after pain stabilization. Continue outpatient psychotherapy and anxiolytic medications as directed.
[2019-09-23 21:13] VITALS: BP 120/53; PULSE 50; RESP 17; O2SAT 97
[2019-09-23] MEDS: LORazepam 2 MG/ML INJ 1 MG IV (21:45)
[2019-09-23 22:37] VITALS: BP 126/64; PULSE 64; RESP 21; O2SAT 97
== END 2019-09-23 23:08 | disposition home or self-care (01) ==
PROVIDERS: Emergency Provider Emergency Medicine; PCP Family Medicine
DX: F41.9 Anxiety disorder, unspecified (principal); R51 Headache
CPT/HCPCS: 96361; 96374; 96375; 99284; J1200; J1885; J2060; J2765

== ENCOUNTER 2019-09-26 13:10 | Day surgery (SDC) | payer MEDICARE, OTHER, SELFPAY ==
[2019-09-22 07:52] VITALS: BMI 33.1
[2019-09-26] VITALS (10 sets, daily range): BP systolic 121–149; BP diastolic 44–81; PULSE 60–84; RESP 10–17; TEMP 35.9–37.3; O2SAT 93–99; BMI 31.0
[2019-09-26] MEDS: LACTATED RINGERS 1,000 ML 42 ML IV (13:51)
[2019-09-26] MEDS: LORazepam 2 MG/ML INJ 0.5 MG IV (14:03)
--- NOTE | 2019-09-26 15:29 | PM.PREOP ---
Pre-operative Note Interval Note History & Physical reviewed/Exam performed by Physician: Yes Changes to H&P: No H&P completed within 30 days and has changed as indicated here:: Patient still has an extensive rash from psoriasis which is improved I suspect wound that will not be going away therefore will proceed but will not use mesh. I discussed this with him and the risks of bleeding infection recurrence.
[2019-09-26] MEDS: CEFAZOLIN 2 GM/100 ML FROZ.PIGGY IV (16:02)
--- NOTE | 2019-09-26 16:18 | SUR.OPER ---
Supine on padded OR bed, head on pillow, arms secured on padded arm boards at <90 degrees abduction, legs uncrossed, safety belt at thigh, tape over blanket over lower legs.
[2019-09-26] MEDS: BUPIVACAINE 0.5% (PF) VIAL 30 ML INJ (16:23)
--- NOTE | 2019-09-26 16:48 | PM.OP.1 ---
Operative Date/Time/Diagnoses Date of procedure: 09/26/19 Time of procedure: 16:49 Pre-op diagnosis: Umbilical hernia incarcerated Post-op diagnosis: same Procedure & Clinicians Procedure: Repair of umbilical hernia Same procedure as scheduled: Yes Indications: Symptomatic umbilical hernia with attenuated skin Surgeon: Miguel Mir Click Yes if Unassisted: Yes Anesthesia Type: General Operative Notes Findings: 2 cm defect in the fascia closed with ghlmiz-[id number]-vutpd sutures. No mesh was used due to the patient's psoriasis. Closure Type: primary Specimen(s): none sent Prosthetic devices, grafts, tissues, transplants, or devices: None Estimated Blood Loss (mL): 5 Blood products transfused: none Procedure in detail: The patient is placed supine on the operating room table and underwent general LMA anesthesia. He was prepped and draped in the usual fashion. Redness around the umbilicus had pretty much resolved but he still had a significant amount of psoriasis in the surrounding tissues. Because of this I decided not to place mesh. Local anesthetic was infiltrated in a field block fashion around the umbilicus. A curvilinear incision was made under the umbilicus and carried down the level the fascia. The sac was entered and the fat contained within the hernia was reduced. The edge of the fascia was cleared of tissue and the preperitoneal fat underneath the abdominal wall was dissected part weight back to allow for primary closure under direct vision. Closure of the hernia it was accomplished using [id number]-ko-ilojm 1. Ethibond sutures. This required 2 sutures. The umbilicus was tacked down to the fascia with interrupted 3 0 Vicryl. The subcu was closed with 3 0 Vicryl and the skin was closed running 4 0 Vicryl subcuticular stitch and Steri-Strips. Dressing was applied and the patient was taken to the recovery area extubated in good condition. Complications: none Post-operative Condition: stable Disposition: PACU
--- NOTE | 2019-09-26 17:23 | SUR.PHASEI ---
care assumed, report recieved.
== END 2019-09-26 18:19 | disposition home or self-care (01) ==
PROVIDERS: PCP Family Medicine; Visit Provider Specialist
PROC: (CPT 49585; principal; 2019-09-26 14:45)
DX: K42.9 Umbilical hernia without obstruction or gangrene (principal); F41.9 Anxiety disorder, unspecified; F32.9 Major depressive disorder, single episode, unspecified
CPT/HCPCS: 49585; J0690; J1100; J1885; J2060; J2250; J2405; J2704; J3010

== ENCOUNTER 2020-03-06 12:40 | Emergency (ER) | payer MEDICARE, OTHER, SELFPAY ==
[2020-03-06 12:53] VITALS: BP 145/68; PULSE 75; RESP 16; TEMP 36.4; O2SAT 98
--- NOTE | 2020-03-06 13:03 | ED.HA ---
HPI - Headache General Chief Complaint: Headache Stated Complaint: EXTREME MIGRAINES Time Seen by Provider: 03/06/20 13:00 Source: patient Mode of arrival: Ambulatory Limitations: no limitations History of Present Illness HPI Narrative: 69-year-old male nonsmoker with history of daily migraines which 10 to resolved presents with a chief complaint of severe generalized headache since about 4:00 a.m. this morning. He states it is worsened by bright lights and loud noise. He denies focal neurologic findings such as blurred vision, trouble with speech or numbness, tingling or weakness. He denies any fever or chills. He has had no runny nose or sore throat. He denies any recent trauma or injury. He does state that this is more intense than normal MD Complaint: headache and migraine Onset (ago): hour(s) Onset description: gradual Location: diffuse Severity: moderate Quality: aching and throbbing Relieving factors: dark room Exacerbating factors: light Context: occurred at rest Associated symptoms: none Treatments prior to arrival: none Related Data Home Medications Medication Instructions Recorded Confirmed pravastatin 10 mg tablet 10 mg PO DAILY 08/24/19 10/13/19 tamsulosin 0.4 mg capsule 0.4 mg PO DAILY 08/24/19 10/13/19 lorazepam 1 mg PO Q6H PRN 09/06/19 10/13/19 Previous Rx's Medication Instructions Recorded hydroxyzine pamoate 50 mg PO TID PRN #14 cap 08/13/19 ondansetron 4 mg PO Q6H PRN #14 tab 08/13/19 hydroxyzine HCl 25 mg PO TID PRN #30 tab 08/22/19 hydrocodone-acetaminophen [[place]] See Rx Instructions .ROUTE 09/26/19 .COMPLEX PRN #14 tab Allergies Allergy/AdvReac Type Severity Reaction Status Date / Time No Known Drug Allergies Allergy Verified 10/13/19 14:33 Review of Systems Constitutional Constitutional: Denies chills, Denies fatigue, Denies fever(s), Denies frequent falls, Reports headache(s), Denies lethargy and Denies weakness Eyes Eyes: Denies change in vision, Denies eye discharge, Denies irritation and Denies loss of vision ENT Ears, Nose, Mouth, and Throat: Denies change in voice, Denies dizziness, Reports headache(s), Denies neck pain, Denies sore throat and Denies throat swelling Cardiovascular Cardiovascular: Denies chest pain, Denies irregular heart rhythm, Denies lightheadedness, Denies palpitations, Denies dyspnea, Denies dyspnea on exertion and Denies orthopnea Respiratory Respiratory: Denies cough, Denies dyspnea, Denies dyspnea on exertion and Denies wheezing Gastrointestinal Gastrointestinal: Denies abdominal pain, Denies change in bowel habits, Denies diarrhea, Denies nausea and Denies vomiting Genitourinary Genitourinary: Denies hematuria, Denies flank pain, Denies urinary incontinence and Denies urinary urgency Musculoskeletal Musculoskeletal: Denies back pain, Denies muscle weakness, Denies neck pain, Denies numbness and Denies tingling Integumentary/Breasts Skin/Breast: Denies pruritus, Denies erythema, Denies rash and Denies wounds Neurologic Neurologic: Denies behavioral changes, Denies confusion, Denies dizziness, Denies frequent falls, Reports headache(s), Denies loss of vision, Denies numbness, Denies tingling and Denies weakness Psychiatric Psychiatric: Denies anxiety, Denies behavioral changes, Denies confusion, Denies depression, Denies homicidal ideation and Denies suicidal ideation Endocrine Endocrine: Denies fatigue, Denies flushing and Denies palpitations Hematologic/Lymphatic Hematologic/Lymphatic: Denies easy bruising Allergic/Immunologic Allergic/Immunologic: Denies urticaria, Denies throat swelling and Denies wheezing Patient History Medical History Anxiety (Acute) Chronic eczema (Acute) Diverticulosis (Acute) History of headache (Acute) History of prostate cancer (Acute ~2009) HLD (hyperlipidemia) (Acute) Hx of radiation therapy (Acute) Impaired vision (Acute) Loss or of partner (Acute) Umbilical hernia (Acute ~2019) Surgical History History of colonoscopy (Acute) History of hernia repair (Acute) Hx of cholecystectomy (Acute) Family History Father Cancer Social History household members: none Smoking Status: Never smoker Smoking Status: Never smoker alcohol intake frequency: holidays/special occasions only Alcohol type: beer Substance Use Type: does not use Exam Narrative Exam Narrative: GENERAL: [69] year old patient appears stated age. Well-nourished, well-developed patient, in moderate distress, sitting in a dark room with sunglasses on HEAD: Atraumatic. Normocephalic. EYES: Pupils equal round and reactive. Extraocular motions intact. No scleral icterus. No injection or drainage. ENT: Nose without bleeding, purulent drainage. Throat without erythema, tonsillar hypertrophy or exudate. Airway patent. NECK: Trachea midline. Non tender CARDIOVASCULAR: Regular rate and rhythm without murmurs, gallops, or rubs. RESPIRATORY: Clear to auscultation. Breath sounds equal bilaterally. No wheezes, rales, or rhonchi. GASTROINTESTINAL: Abdomen soft, non-tender, nondistended. EXTREMITIES: No edema or joint tenderness. BACK: Nontender without deformity or crepitance. No flank tenderness. NEURO: AOx3. SKIN: No rash or erythema of visible areas NIH Stroke Scale 1a. LOC: Patient is alert and keenly responsive (0) 1b. LOC Questions: Patient answers both LOC questions accurately (0) 1c. LOC Commands: Patient performs both tasks correctly (0) 2. Best Gaze: Normal (0) 3. Visual: No visual loss (0) 4. Facial palsy: Normal symmetrical movements (0) 5. Motor arm: No drift (0) 6. Motor leg: No drift (0) 7. Limb ataxia: Absent (0) 8. Sensory: Normal (0) 9. Best language: No aphasia; normal (0) 10. Dysarthria: Normal (0) 11. Extinction and inattention: No abnormality (0) NIHSS: 0 Initial Vital Signs Initial Vital Signs: Vital Signs Temperature 97.5 F L 03/06/20 12:53 Pulse Rate 75 03/06/20 12:53 Respiratory Rate 16 03/06/20 12:53 Blood Pressure 145/68 H 03/06/20 12:53 Pulse Oximetry 98 03/06/20 12:53 Course Course Course Narrative: Has significant improvement of symptoms after above-stated therapies Orders Ordered: ED Orders 03/06/20 14:38 CT head/brain wo con Stat Discontinued Medications Dexamethasone (Decadron) 10 mg IV NOW ONE Stop: 03/06/20 13:21 Last Admin: 03/06/20 13:35 Dose: 10 mg Documented by: TANNA Diphenhydramine HCl (Benadryl) 25 mg IV NOW ONE Stop: 03/06/20 13:21 Last Admin: 03/06/20 13:34 Dose: 25 mg Documented by: TANNA Sodium Chloride (Normal Saline 0.9%) 1,000 mls @ 1,000 mls/hr IV BOLUS ONE Stop: 03/06/20 14:19 Last Admin: 03/06/20 13:33 Dose: 1,000 mls/hr Documented by: TANNA Ketorolac Tromethamine (Toradol) 15 mg IV NOW ONE Stop: 03/06/20 13:21 Last Admin: 03/06/20 13:35 Dose: 15 mg Documented by: TANNA Lorazepam (Ativan) 1 mg IV NOW ONE Stop: 03/06/20 14:39 Last Admin: 03/06/20 14:53 Dose: 1 mg Documented by: TANNA Metoclopramide HCl (Reglan) 10 mg IV NOW ONE Stop: 03/06/20 13:21 Last Admin: 03/06/20 13:35 Dose: 10 mg Documented by: TANNA Vital Signs Vital signs: Vital Signs - 8 hr 03/06/20 12:53 03/06/20 14:00 03/06/20 16:40 Temperature 97.5 F L Pulse Rate 75 66 69 Respiratory Rate 16 18 16 Blood Pressure 145/68 H Blood Pressure [Left Arm] 142/82 H 131/72 Pulse Oximetry 98 98 95 MDM - Headache Imaging Data CT scan - head: Radiologist's Impression: Chart Viewer Diagnostics DATE TYPE STATUS AUTHOR Hx 03/06/20 14:38 Lisa Franco 09/06/19 09:28 08/22/19 15:05 Campos Shipman 08/13/19 13:15 Paul Bean 08/13/19 12:01 Paul Bean Jay P 69, M112/03/1949 [facility] 113.398kg Headache Search Chart No Data to Display ONSET Today 16:40 Boris Humphreys M 1950 [address] [address] [address] Scan Report Signed Patient: Boris Humphreys PMR#: [id number] : 1950Acct:[id number] Age/Sex: 69 / MDate of Service: 03/06/20 Loc: ED Accession Number: [id number] Procedure: CT head/brain wo con Ordering Provider: Nick Trinidad D.O. PROCEDURE: CT HEAD/BRAIN WO CON INDICATIONS: worst headache of life TECHNIQUE: Noncontrast 4.5 mm thick angled axial sections acquired from the foramen magnum to the vertex, with coronal and sagittal reformats. For radiation dose reduction, the following was used: automated exposure control, adjustment of mA and/or kV according to patient size. COMPARISON: None. FINDINGS: Image quality: Excellent. CSF spaces: Basal cisterns are patent. No extra-axial fluid collections. The ventricles are symmetric in size and shape. Brain: No intracranial bleeds or masses. There is cerebral volume loss for age, with resultant ventricular and sulcal prominence. There are periventricular and deep white matter chronic small vessel ischemic changes. There is intracranial internal carotid artery atherosclerosis. Skull and face: Calvarium and visualized facial bones appear intact, without suspicious lesions. Sinuses: Visualized sinuses and mastoids are clear. IMPRESSION: No acute intracranial disease process. Dictated by: Lisa Franco MD, PhD on 03/06/2020 at 15:38 Approved by: Lisa Franco MD, PhD on 03/06/2020 at 15:40 Discharge Plan Departure Patient Disposition: Home Clinical Impression: Migraine Qualifiers: Migraine type: unspecified Status migrainosus presence: without status migrainosus Intractability: not intractable Qualified Code(s): G43.909 - Migraine, unspecified, not intractable, without status migrainosus Discharge Date/Time: 03/06/20 16:50 Instructions: DI for Migraine Activity Restrictions/Additional Instructions: *You have been diagnosed with [acute migraine headache] *What to do: *Continue to take medications as directed *Follow up with your primary care provider in 2-3 days, call for an appointment. Let them know you were seen in the Emergency Department and that we ask that you be seen in follow up *Return to ER if you should have any new, worsening or concerning symptoms Prescriptions: No Action tamsulosin 0.4 mg capsule 0.4 mg PO DAILY RF: 0 pravastatin 10 mg tablet 10 mg PO DAILY RF: 0 hydrocodone-acetaminophen [[place]] 5-325 mg tablet See Rx Instructions .ROUTE .COMPLEX PRN (Reason: painful procedure) Qty: 14 RF: 0 ondansetron 4 mg tablet,disintegrating 4 mg PO Q6H PRN (Reason: nausea and vomiting) Qty: 14 RF: 0 hydroxyzine pamoate 50 mg capsule 50 mg PO TID PRN (Reason: anxiety) Qty: 14 RF: 0 hydroxyzine HCl 25 mg tablet 25 mg PO TID PRN (Reason: anxiety) Qty: 30 RF: 0 lorazepam 1 mg Tablet 1 mg PO Q6H PRN (Reason: Anxiety) RF: 0 Referrals: Nash Mancilla MD [Primary Care Provider] -
[2020-03-06] MEDS: SODIUM CHLORIDE 0.9% 1,000 ML 1000 ML IV (13:33)
[2020-03-06] MEDS: diphenhydrAMINE 50 MG/ML VIAL 25 MG IV (13:34)
[2020-03-06] MEDS: METOCLOPRAMIDE 10 MG/2 ML INJ IV (13:35)
[2020-03-06] MEDS: DEXAMETHASONE 10 MG/ML VIAL IV (13:35)
[2020-03-06] MEDS: KETOROLAC 60 MG/2 ML VIAL 15 MG IV (13:35)
[2020-03-06 14:00] VITALS: BP 142/82; PULSE 66; RESP 18; O2SAT 98
--- NOTE | 2020-03-06 14:38 | DI.CT.S_ITS ---
PROCEDURE: CT HEAD/BRAIN WO CON INDICATIONS: worst headache of life TECHNIQUE: Noncontrast 4.5 mm thick angled axial sections acquired from the foramen magnum to the vertex, with coronal and sagittal reformats. For radiation dose reduction, the following was used: automated exposure control, adjustment of mA and/or kV according to patient size. COMPARISON: None. FINDINGS: Image quality: Excellent. CSF spaces: Basal cisterns are patent. No extra-axial fluid collections. The ventricles are symmetric in size and shape. Brain: No intracranial bleeds or masses. There is cerebral volume loss for age, with resultant ventricular and sulcal prominence. There are periventricular and deep white matter chronic small vessel ischemic changes. There is intracranial internal carotid artery atherosclerosis. Skull and face: Calvarium and visualized facial bones appear intact, without suspicious lesions. Sinuses: Visualized sinuses and mastoids are clear. IMPRESSION: No acute intracranial disease process. Dictated by: Lisa Franco MD, PhD on 03/06/2020 at 15:38 Approved by: Lisa Franco MD, PhD on 03/06/2020 at 15:40
[2020-03-06] MEDS: LORazepam 2 MG/ML INJ 1 MG IV (14:53)
[2020-03-06 16:40] VITALS: BP 131/72; PULSE 69; RESP 16; O2SAT 95
== END 2020-03-06 16:50 | disposition home or self-care (01) ==
PROVIDERS: Emergency Provider Emergency Medicine; PCP Family Medicine
DX: G43.909 Migraine, unspecified, not intractable, without status migrainosus (principal)
CPT/HCPCS: 36415; 70450; 96374; 96375; 99284; J1100; J1200; J1885; J2060; J2765

== ENCOUNTER → 2020-05-17 11:24 | Outpatient (CLI) | payer MEDICARE, OTHER, SELFPAY ==
--- NOTE | 2020-05-17 | DI.MRI.S_ITS ---
PROCEDURE: MR ANGIO HEAD WO CON INDICATIONS: Headache TECHNIQUE: Noncontrast axial 3-D [id number] MR angiogram, with 3-dimensional maximum intensity projection (MIP) reformats of the internal carotid arteries and posterior circulation then performed. COMPARISON: None. FINDINGS: Image quality: Excellent. Anterior circulation: There is a possible 3 mm diameter aneurysm of the right distal cavernous internal carotid artery. This could also represent a tortuous segment of ophthalmic artery, or an ophthalmic artery aneurysm. Intracranial internal carotid arteries demonstrate otherwise normal size and intraluminal flow signal. The flow within the paired anterior cerebral arteries is normal and symmetric. The flow within the middle cerebral arteries is normal and symmetric. The anterior communicating artery is seen. No stenoses, occlusions, or aneurysms. Posterior circulation: Visualized portions of the vertebral arteries demonstrate normal caliber, and join to form a normal appearing basilar artery. The flow within the posterior cerebral arteries is normal and symmetric. No stenoses, occlusions, or aneurysms. IMPRESSION: 1. Indeterminate finding involving the right internal carotid artery/ophthalmic artery as described above. Differential considerations include tortuosity of the ophthalmic artery versus internal carotid artery aneurysm versus ophthalmic artery aneurysm. Initial further assessment with CT angiography of the head is recommended. Dictated by: Hussein Fuchs M.D. on 05/17/2020 at 13:02 Approved by: Hussein Fuchs M.D. on 05/17/2020 at 13:07
--- NOTE | 2020-05-17 | DI.MRI.S_ITS ---
PROCEDURE: MR HEAD/BRAIN WO/W CON INDICATIONS: Headache TECHNIQUE: Noncontrast axial T1 spin echo, axial T2 fast spin echo, sagittal and axial FLAIR, coronal T2 fast spin echo, axial gradient echo, axial diffusion and ADC through the brain. After the administration of contrast, axial and coronal T1 spin echo with fat saturation through the brain. COMPARISON: [facility], CT, CT HEAD/BRAIN WO CON, 03/06/2020, 15:16. FINDINGS: Image quality: Excellent. CSF spaces: Basal cisterns are patent. No extra-axial fluid collections. Ventricles are normal in size and shape. Brain: No midline shift. No intracranial bleeds or masses. No abnormal intracranial enhancement. There is cerebral volume loss for age. There is periventricular white matter chronic small vessel ischemic change. The brainstem appears normal. Diffusion-weighted images demonstrate no acute ischemic insults. No chronic ischemic insults. Normal intravascular flow voids are present. Skull and face: Calvarial marrow is normal in signal. Orbits appear normal. Sinuses: Mild bilateral maxillary sinus mucosal thickening. IMPRESSION: 1. Mild volume loss and minimal small vessel ischemic disease. 2. No acute process. No recent infarct. 3. No explanation for headache. Dictated by: Hussein Fuchs M.D. on 05/17/2020 at 12:58 Approved by: Hussein Fuchs M.D. on 05/17/2020 at 13:00
== END ==
PROVIDERS: PCP Family Medicine; Referring Provider Family Medicine; Visit Provider Psychiatry & Neurology Neurology
DX: R51 Headache (principal); I77.9 Disorder of arteries and arterioles, unspecified
CPT/HCPCS: 70544; 70553

== ENCOUNTER → 2020-05-23 11:09 | Outpatient (CLI) | payer MEDICARE, OTHER, SELFPAY ==
[2020-05-23 12:03] LABS: BUN Creatinine Ratio 17.2 (6-22); Blood Urea Nitrogen 15 mg/dL (9-20); Estimated Glomerular Filt Rate > 60.0 mL/min (>60)
== END ==
PROVIDERS: PCP Family Medicine; Referring Provider Family Medicine; Visit Provider Family Medicine
DX: G44.52 New daily persistent headache (NDPH) (principal)
CPT/HCPCS: 36415; 82565; 84520

== ENCOUNTER → 2020-05-25 13:01 | Outpatient (CLI) | payer MEDICARE, OTHER, SELFPAY ==
--- NOTE | 2020-05-25 13:03 | DI.CT.S_ITS ---
PROCEDURE: CT ANGIO HEAD INDICATIONS: New daily persistent headache (NDPH) TECHNIQUE: Precontrast 4.5 mm thick angled axial sections acquired from the foramen magnum to the vertex. After the administration of intravenous contrast, 1 mm thick sections acquired through the [place] of [place]. Postcontrast 4.5 mm thick sections then re-acquired from the foramen magnum to the vertex. 10 mm thick jgyhhov-chvvhsvjm-vzvzltmefi (MIP) reformats were acquired of the central intracranial vasculature. For radiation dose reduction, the following was used: automated exposure control, adjustment of mA and/or kV according to patient size. COMPARISON: [facility], MR, MR HEAD/BRAIN WO/W CON, 05/17/2020, 12:14. [facility], MR, MR ANGIO HEAD WO CON, 05/17/2020, 11:59. [facility], CT, CT HEAD/BRAIN WO CON, 03/06/2020, 15:16. FINDINGS: Image quality: Excellent. Anterior circulation: Intracranial internal carotid arteries are normal in size and flow. The flow within the paired anterior cerebral arteries is normal and symmetric. The flow within the middle cerebral arteries is normal and symmetric. The anterior communicating artery is seen. No aneurysms are seen. Previously noted prominence at the right internal carotid/ophthalmic artery junction is again identified. It appears to represent vessel tortuosity. Posterior circulation: Visualized portions of the vertebral arteries demonstrate normal caliber, and join to form a normal appearing basilar artery. Flow within the posterior cerebral arteries is normal and symmetric. No aneurysms are seen. CSF spaces: Ventricles are normal in size and shape. Basal cisterns are patent. No extra-axial fluid collections. Brain: No midline shift. No intracranial bleeds or masses. Vázquez-white matter interface appears intact. Skull and face: Calvarium and facial bones appear intact, without suspicious lesions. Sinuses: Visualized sinuses and mastoids are clear. IMPRESSION: 1. Previous area prominence at the right internal carotid slashed abdominal artery junction appears to represent vascular tortuosity. No definitive aneurysm is identified. Dictated by: Aimee Moseley M.D. on 05/25/2020 at 16:34 Approved by: Aimee Moseley M.D. on 05/25/2020 at 16:48
== END ==
PROVIDERS: PCP Family Medicine; Referring Provider Family Medicine; Visit Provider Family Medicine
DX: G44.52 New daily persistent headache (NDPH) (principal)
CPT/HCPCS: 70496; Q9967

== ENCOUNTER → 2020-08-10 13:18 | Outpatient (CLI) | payer MEDICARE, OTHER, SELFPAY ==
--- NOTE | 2020-08-10 13:20 | DI.RAD.S_ITS ---
PROCEDURE: XR SHOULDER RT MIN 2V INDICATIONS: right wrist, forearm and shoulder pain after fall TECHNIQUE: 3 views of the shoulder were acquired. COMPARISON: None. FINDINGS: Bones: No acute fractures or dislocations. No suspicious bony lesions. Visualized ribs appear intact. Moderate acromioclavicular osteoarthrosis is present. Degenerative changes are seen in the included spine. Soft tissues: No suspicious soft tissue calcifications. IMPRESSION: No acute osseous abnormality. If clinical suspicion and/or symptoms persist, further assessment with repeat plain films, or advanced imaging (e.g., CT, MRI, or bone scan) may be helpful for further assessment. Dictated by: Clinton Sanders M.D. on 08/10/2020 at 13:45 Approved by: Clinton Sanders M.D. on 08/10/2020 at 13:49
--- NOTE | 2020-08-10 13:20 | DI.RAD.S_ITS ---
PROCEDURE: XR WRIST RT MIN 3V INDICATIONS: right wrist, forearm and shoulder pain after fall TECHNIQUE: 4 views of the wrist were acquired. COMPARISON: None. FINDINGS: Bones: No acute fractures or dislocations. No suspicious bony lesions. Moderate degenerative changes are seen at the 1st carpometacarpal joint. A small ossification adjacent to the 1st carpometacarpal joint is nonspecific and may be related to remote prior trauma or degenerative changes. Scaphoid view: Intact scaphoid Soft tissues: No suspicious soft tissue calcifications. IMPRESSION: No acute osseous abnormality. 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 If clinical suspicion and/or symptoms persist, further assessment with repeat plain films, or advanced imaging (e.g., CT, MRI, or bone scan) may be helpful for further assessment. Dictated by: Clinton Sanders M.D. on 08/10/2020 at 13:52 Approved by: Clinton Sanders M.D. on 08/10/2020 at 13:54
--- NOTE | 2020-08-10 13:20 | DI.RAD.S_ITS ---
PROCEDURE: XR FOREARM RT 2V INDICATIONS: right wrist, forearm and shoulder pain after fall TECHNIQUE: 2 views of the forearm were acquired. COMPARISON: None. FINDINGS: Bones: No acute fractures or dislocations. No suspicious bony lesions. Soft tissues: No suspicious soft tissue calcifications or masses. Mild soft tissue edema is seen in the mid forearm and wrist. IMPRESSION: No acute osseous abnormality. If clinical suspicion and/or symptoms persist, further assessment with repeat plain films, or advanced imaging (e.g., CT, MRI, or bone scan) may be helpful for further assessment. Dictated by: Clinton Sanders M.D. on 08/10/2020 at 13:50 Approved by: Clinton Sadners M.D. on 08/10/2020 at 13:52
== END ==
PROVIDERS: PCP Family Medicine; Referring Provider Physician Assistant; Visit Provider Physician Assistant
DX: M25.531 Pain in right wrist (principal); M25.511 Pain in right shoulder; M79.631 Pain in right forearm; M18.11 Unilateral primary osteoarthritis of first carpometacarpal joint, right hand
CPT/HCPCS: 73030; 73090; 73110

== ENCOUNTER → 2020-10-20 11:13 | Outpatient (CLI) | payer MEDICARE, OTHER, SELFPAY ==
--- NOTE | 2020-10-20 | DI.MRI.S_ITS ---
PROCEDURE: MR SHOULDER RT WO CON INDICATIONS: Impingement syndrome of right shoulder TECHNIQUE: Noncontrast oblique coronal T2 fast spin echo with fat saturation, oblique sagittal T1 spin echo and T2 fast spin echo with fat saturation, axial T1 spin echo and T2 fast spin echo with fat saturation through the shoulder. COMPARISON: None. FINDINGS: Image quality: Excellent. Rotator cuff: There is full-thickness rupture involving anterior and mid fibers of distal supraspinatus approximately 8 mm from its insertion on the humeral head with up to 2.4 centimeter medial retraction of torn tendon fibers to the level of acromioclavicular joint. Tendinosis and moderate grade articular surface partial-thickness tear involving posterior fibers of distal supraspinatus and infraspinatus is seen. Distal subscapularis tendinosis and low-grade intrasubstance partial-thickness tear is also noted. Sagittal images demonstrate moderate supraspinatus muscle atrophy. Bones and bursae: No bone marrow contusions or fractures. Moderate acromioclavicular joint and glenohumeral joint osteoarthritic changes are seen. Nonspecific subcortical cyst formation in anterolateral aspect of humeral head near distal supraspinatus insertion is noted measures 1.3 x 1.4 cm in size. No suspicious intraosseous lesion. The acromion demonstrates conventional anatomy, without an os acromiale. Moderate amount of joint effusion and subacromial subdeltoid bursal fluid is seen. Capsule and soft tissues: In the absence of intra-articular contrast, the labrum and glenohumeral ligaments appear intact. The long head of the biceps tendinosis and low-grade intrasubstance partial-thickness tear is noted. The rotator interval appears normal, without fibrosis. The coracohumeral ligament is normal in thickness. IMPRESSION: 1. Full-thickness rupture involving anterior and mid fibers of distal supraspinatus approximately 8 mm from its insertion on humeral head with up to 2.5 cm medial retraction of torn tendon fibers to the level of acromioclavicular joint. Tendinosis and moderate grade articular surface partial thickness tear involving distal infraspinatus and posterior fibers of distal supraspinatus. Distal subscapularis tendinosis and low-grade intrasubstance partial-thickness tear. Moderate supraspinatus muscle atrophy. 2. Moderate acromioclavicular joint and glenohumeral joint osteoarthritis. Moderate amount of joint effusion and subacromial subdeltoid bursal fluid. 3. No gross focal labral tear. 4. Proximal intra-articular portion of long head of biceps tendinosis and low-grade intrasubstance partial-thickness tear. Dictated by: Luis Mendieta M.D. on 10/22/2020 at 9:20 Approved by: Luis Mendieta M.D. on 10/22/2020 at 9:23
== END ==
PROVIDERS: PCP Family Medicine; Referring Provider Physician Assistant Surgical; Visit Provider Physician Assistant Surgical
DX: M75.41 Impingement syndrome of right shoulder (principal); M75.121 Complete rotator cuff tear or rupture of right shoulder, not specified as traumatic; M19.011 Primary osteoarthritis, right shoulder; S46.111A Strain of muscle, fascia and tendon of long head of biceps, right arm, initial encounter
CPT/HCPCS: 73221

== ENCOUNTER 2023-02-18 13:10 | Emergency (ER) | payer MEDICARE, OTHER, SELFPAY ==
[2023-02-18 13:14] VITALS: BP 158/67; PULSE 69; RESP 20; TEMP 36.6; O2SAT 94; BMI 41.1
--- NOTE | 2023-02-18 13:58 | DI.US.S_ITS ---
PROCEDURE: US PERIPH VENOUS LOW EXTREM LT INDICATIONS: SWELLING TECHNIQUE: Real-time imaging, as well as color and pulse Doppler interrogation, were performed of the lower extremity deep veins from the inguinal ligament to the popliteal fossa. COMPARISON: None. FINDINGS: Within the mid femoral vein, there is partial occlusion. Distally within the femoral vein, there is occlusive thrombus seen, continuing into the popliteal vein. IMPRESSION: Left lower extremity deep venous thrombosis, including occlusive thrombus distally. Dictated by: Campos Shipman M.D. on 02/18/2023 at 14:55 Approved by: Campos Shipman M.D. on 02/18/2023 at 14:57
--- NOTE | 2023-02-18 14:06 | ED_ITS ---
HPI - Extremity Problem <Keith Espinoza PA-C - Last Filed: 02/18/23 17:34> General Chief complaint: Extremity Problem,Nontraumatic Stated complaint: lt leg swollen Time Seen by Provider: 02/18/23 13:56 Source: patient Mode of arrival: Ambulatory History of Present Illness HPI Narrative: This is a 72-year-old male presents emergency department due to left lower extremity swelling that has not improved for the last 2 weeks. Patient does not report any significant pain although he does report some discomfort. Denies any chest pain, shortness of breath. Denies any history of blood clots but states that he is very sedentary. Not taking any blood thinners. No history of heart failure that he knows of. Denies any increased warmth to the area in his not had a fevers. No injuries to the area. Related Data Home Medications Medication Instructions Recorded Confirmed pravastatin 10 mg tablet 40 mg PO BEDTIME 08/24/19 02/18/23 tamsulosin 0.4 mg capsule 0.4 mg PO DAILY 08/24/19 02/18/23 clonazepam 1 mg tablet 1 - 2 mg PO BEDTIME 11/13/20 02/18/23 divalproex 125 mg tablet,delayed 125 mg PO BEDTIME 10/29/21 02/18/23 release metoprolol succinate 25 mg 25 mg PO DAILY 03/27/22 02/18/23 tablet,extended release 24 hr lorazepam 0.5 mg tablet 0.5 mg PO PRN PRN Anxiety 02/18/23 02/18/23 promethazine 25 mg tablet 25 mg PO PRN PRN Nausea 02/18/23 02/18/23 Previous Rx's Medication Instructions Recorded gabapentin 300 mg capsule See Rx Instructions .Route 12/02/22 .COMPLEX #150 caps pregabalin 300 mg capsule 300 mg PO BID #60 caps 01/19/23 apixaban 5 mg tablet 5 mg PO BID 30 days #60 tabs 02/18/23 Allergies Allergy/AdvReac Type Severity Reaction Status Date / Time No Known Drug Allergies Allergy Verified 02/18/23 13:18 Review of Systems <Keith Espinoza PA-C - Last Filed: 02/18/23 17:34> Review of Systems Narrative: GENERAL: Denies chills, fatigue, malaise, fever, sweats. HEENT: Denies sinus pain, ear pain, sore throat, difficulty swallowing, dizziness. RESPIRATORY: Denies dyspnea, cough, wheezing, hemoptysis, sputum. CARDIOVASCULAR: Denies chest pain, palpitations, orthopnea, edema, GASTROINTESTINAL: Denies nausea, vomiting, abdominal pain, diarrhea, constipation, melena. : Denies dysuria, frequency, incontinence, hematuria, urinary retention. MUSCULOSKELETAL: Left lower extremity swelling, otherwise denies weakness, joint pain, or bony pain SKIN: Denies rash, skin lesions, or other NEUROLOGIC: Denies weakness, headache, numbness, change in speech, confusion, seizures, incoordination. PSYCHIATRIC: No concerning psychosocial issues. 12 point review of systems is negative except for those stated above Patient History <Keith Espinoza PA-C - Last Filed: 02/18/23 17:34> Medical History (Updated 02/18/23 @ 16:22 by Keith Espinoza PA-C) Anxiety Chronic eczema Diverticulosis History of headache History of prostate cancer (~2009) HLD (hyperlipidemia) Hx of radiation therapy Impaired vision Loss or of partner Umbilical hernia (~2018) Surgical History History of colonoscopy History of hernia repair Hx of cholecystectomy Family History Father Cancer Social History household members: none Smoking Status: Never smoker Smoking Status: Never smoker alcohol intake frequency: holidays/special occasions only Alcohol type: beer Substance Use Type: does not use Exam <Keith Espinoza PA-C - Last Filed: 02/18/23 17:34> Narrative Exam Narrative: GENERAL: Well-developed patient, in mild distress. HEAD: Atraumatic. Normocephalic. EYES: Pupils equal round and reactive. Extraocular motions intact. No scleral icterus. No injection or drainage. ENT: Nose without bleeding, purulent drainage. Throat without erythema, tonsillar hypertrophy or exudate. Airway patent. NECK: Trachea midline. Non tender CARDIOVASCULAR: Regular rate and rhythm without murmurs, gallops, or rubs. RESPIRATORY: Clear to auscultation. Breath sounds equal bilaterally. No wheezes, rales, or rhonchi. GASTROINTESTINAL: Abdomen soft, non-tender, nondistended. EXTREMITIES: Left calf has proximally 2+ pitting edema. Bilateral 2+ dorsalis pedis pulses. Neurovascularly intact throughout. Any left lower extremities cool to the touch. No evidence of any breaks in the skin or abscesses. BACK: Nontender without deformity or crepitance. No flank tenderness. NEURO: AOx3. SKIN: No rash or erythema of visible areas Initial Vital Signs Initial Vital Signs: Vital Signs Temperature 97.8 F 02/18/23 13:14 Pulse Rate 69 02/18/23 13:14 Respiratory Rate 20 02/18/23 13:14 Blood Pressure 158/67 H 02/18/23 13:14 Pulse Oximetry 94 02/18/23 13:14 Oxygen Delivery Method Room Air 02/18/23 13:14 <Art Pulido MD - Last Filed: 02/26/23 03:25> Initial Vital Signs Initial Vital Signs: Vital Signs Temperature 97.8 F 02/18/23 13:14 Pulse Rate 69 02/18/23 13:14 Respiratory Rate 20 02/18/23 13:14 Blood Pressure 158/67 H 02/18/23 13:14 Pulse Oximetry 94 02/18/23 13:14 Oxygen Delivery Method Room Air 02/18/23 13:14 Course <Keith Espinoza PA-C - Last Filed: 02/18/23 17:34> Orders Ordered: ED Orders 02/18/23 13:58 US periph venous low extrem lt Stat 02/18/23 16:02 CMP [Comprehensive Metabolic Panel] Stat Vital Signs Vital signs: Vital Signs - 8 hr 02/18/23 13:14 Temperature 97.8 F Pulse Rate 69 Respiratory Rate 20 Blood Pressure 158/67 H Pulse Oximetry 94 Oxygen Delivery Method Room Air <Art Pulido MD - Last Filed: 02/26/23 03:25> Orders Ordered: ED Orders 02/18/23 13:58 US periph venous low extrem lt Stat 02/18/23 16:02 CMP [Comprehensive Metabolic Panel] Stat Vital Signs Vital signs: Vital Signs - 8 hr 02/18/23 13:14 Temperature 97.8 F Pulse Rate 69 Respiratory Rate 20 Blood Pressure 158/67 H Pulse Oximetry 94 Oxygen Delivery Method Room Air MDM - Extremity (Nontraumatic) <Keith Espinoza PA-C - Last Filed: 02/18/23 17:34> Lab Data 02/18/23 16:34 Labs: Lab Results 02/18/23 Range/Units 16:34 Sodium 138 (137-145) mmol/L Potassium 4.7 (3.4-5.1) mmol/L Chloride 103 (98-107) mmol/L Carbon Dioxide 27 (22-32) mmol/L BUN 18 (9-20) mg/dL Creatinine 1.00 (0.66-1.25) mg/dL Estimated GFR > 60 (>60) mL/min BUN/Creatinine Ratio 18.0 (6-22) Glucose 93 (80-110) mg/dL Calcium 9.2 (8.4-10.2) mg/dL Total Bilirubin 0.6 (0.2-1.3) mg/dL AST 28 (17-59) IU/L ALT 26 (<50) IU/L Alkaline Phosphatase 90 (38-126) U/L Total Protein 7.8 (6.3-8.2) g/dL Albumin 4.4 (3.5-5.0) g/dL Globulin 3.4 (1.7-4.1) g/dL Albumin/Globulin Ratio 1.3 (1.0-2.8) Imaging Data US - DVT: Radiologist's Impression: [place] [address] Ultrasound Report Signed Patient: Boris Humphreys MR#: [id number] : 1950 Acct:[id number] Age/Sex: 72 / M Date of Service: 02/18/23 Loc: ED Accession Number: [id number] ?? Procedure: US periph venous low extrem lt Ordering Provider: Keith Espinoza P.A-C PROCEDURE:? US PERIPH VENOUS LOW EXTREM LT ? INDICATIONS:? SWELLING ? TECHNIQUE:? Real-time imaging, as well as color and pulse Doppler interrogation, were performed of the lower extremity deep veins from the inguinal ligament to the popliteal fossa.? ? COMPARISON:? None. ? FINDINGS:? Within the mid femoral vein, there is partial occlusion.? Distally within the femoral vein, there is occlusive thrombus seen, continuing into the popliteal vein. ? ? IMPRESSION:? Left lower extremity deep venous thrombosis, including occlusive thrombus distally. ? ? Dictated by: Campos Shipman M.D. on 02/18/2023 at 14:55 ? ? Approved by: Campos Shipman M.D. on 02/18/2023 at 14:57 ? MDM Narrative Medical decision making narrative: MDM * differential diagnosis includes but not limited to DVT, cellulitis * Prior records reviewed: Patient was seen 3 years ago due to a migraine. History of daily migraines. CT head was taken which was unremarkable. * My lab interpretation: Kidney function within normal limits * My imgaing interpretation: Ultrasound showed a DVT of the left lower extremity * Clinical Decision Rules/Scores evaluated: None * Independent discussions with: None ED Course: This is a 72-year-old male presents emergency department due to left lower extremity swelling for the last couple of weeks. Ultrasound showed a left lower extremity deep veinous thrombosis at the mid femoral vein and below. This was discussed with hospitalist who recommended discharging for outpatient treatment. Apixaban prescribed. Patient will follow up with primary care prov ider for continuation of the anticoagulation. She did not describe any chest pain or shortness of breath concerning for a PE. Patient still had good pulses and was neurovascularly intact distally. Shared Decision Making: Discussed plan with the patient who is comfortable with the plan. Social Considerations: None Disposition: Discharge to home <Art Pulido MD - Last Filed: 02/26/23 03:25> Lab Data Labs: Lab Results 02/18/23 Range/Units 16:34 Sodium 138 (137-145) mmol/L Potassium 4.7 (3.4-5.1) mmol/L Chloride 103 (98-107) mmol/L Carbon Dioxide 27 (22-32) mmol/L BUN 18 (9-20) mg/dL Creatinine 1.00 (0.66-1.25) mg/dL Estimated GFR > 60 (>60) mL/min BUN/Creatinine Ratio 18.0 (6-22) Glucose 93 (80-110) mg/dL Calcium 9.2 (8.4-10.2) mg/dL Total Bilirubin 0.6 (0.2-1.3) mg/dL AST 28 (17-59) IU/L ALT 26 (<50) IU/L Alkaline Phosphatase 90 (38-126) U/L Total Protein 7.8 (6.3-8.2) g/dL Albumin 4.4 (3.5-5.0) g/dL Globulin 3.4 (1.7-4.1) g/dL Albumin/Globulin Ratio 1.3 (1.0-2.8) Discharge Plan Departure Patient Disposition: Home Clinical Impression: Deep vein thrombosis of lower extremity Activity Restrictions/Additional Instructions: Thank you for coming to the [facility] Emergency Department today. It appears that you have a blood clot in her left lower extremity. Please take the oral anticoagulation medication as prescribed. Please follow up with your primary care provider next week for continuation of the medication. I sent you medications to [facility] in [place]. I hope you feel better soon. Prescriptions: New apixaban 5 mg tablet 5 mg PO BID 30 Days Qty: 60 0RF Rx Instructions: Please start taking 5mg twice a day starting on 02/25, the day after you finish the 10mg twice a day dosing. No Action clonazepam 1 mg tablet 1 - 2 mg PO BEDTIME divalproex 125 mg tablet,delayed release (DR/EC) 125 mg PO BEDTIME metoprolol succinate 25 mg tablet extended release 24 hr 25 mg PO DAILY gabapentin 300 mg capsule See Rx Instructions .ROUTE .COMPLEX Qty: 150 2RF Rx Instructions: 600 mg po qam and 900 mg po bedtime; pregabalin 300 mg capsule 300 mg PO BID Qty: 60 3RF tamsulosin 0.4 mg capsule 0.4 mg PO DAILY pravastatin 10 mg tablet 40 mg PO BEDTIME lorazepam 0.5 mg tablet 0.5 mg PO PRN PRN (Reason: Anxiety) Patient Comments: take 1 TO 2 tablet by mouth twice a day if needed for anxiety promethazine 25 mg tablet 25 mg PO PRN PRN (Reason: Nausea) Patient Comments: take 1 tablet by mouth every 6 hours if needed for nausea Referrals: Art Jimenez DO [Primary Care Provider] - Stand Alone Forms: Patient Portal/API <Art Pulido MD - Last Filed: 02/26/23 03:25> Cosign ED Attending Cosjuan luisature Attestation: I was immediately available in the department for consultation. ?This documentation has been reviewed and I agree with assessment and plan. Supervised by Art Pulido MD
[2023-02-18 16:52] LABS: Alanine Aminotransferase 26 IU/L (<50); Albumin 4.4 g/dL (3.5-5.0); Albumin Globulin Ratio 1.3 (1.0-2.8); Alkaline Phosphatase 90 U/L (38-126); Aspartate Aminotransferase 28 IU/L (17-59); Bilirubin Total 0.6 mg/dL (0.2-1.3); Blood Urea Nitrogen 18 mg/dL (9-20); Calcium 9.2 mg/dL (8.4-10.2); Carbon Dioxide 27 mmol/L (22-32); Chloride 103 mmol/L (98-107); Estimated Glomerular Filt Rate > 60 mL/min (>60); Globulin 3.4 g/dL (1.7-4.1); Glucose 93 mg/dL (80-110); HEMOLYSIS < 15 (0-50); Potassium 4.7 mmol/L (3.4-5.1); Sodium 138 mmol/L (137-145); Total Protein 7.8 g/dL (6.3-8.2)
--- NOTE | 2023-02-18 17:34 | PC.NURSE ---
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 Pt informed and promised that he would stop there before going home.
[2023-02-18 17:36] VITALS: BP 136/61; PULSE 67; RESP 20; O2SAT 96
== END 2023-02-18 17:35 | disposition home or self-care (01) ==
PROVIDERS: Emergency Provider Physician Assistant Medical; PCP Family Medicine
DX: I82.402 Acute embolism and thrombosis of unspecified deep veins of left lower extremity (principal); Z79.01 Long term (current) use of anticoagulants; Z79.899 Other long term (current) drug therapy
CPT/HCPCS: 36415; 80053; 93971; 99281; 99284

== ENCOUNTER → 2023-03-04 13:39 | Outpatient (CLI) | payer MEDICARE, OTHER, SELFPAY ==
--- NOTE | 2023-03-04 | DI.MRI.S_ITS ---
PROCEDURE: MR ANGIO HEAD WO CON INDICATIONS: New daily persistent headache (NDPH) TECHNIQUE: Noncontrast axial 3-D [id number] MR angiogram, with 3-dimensional maximum intensity projection (MIP) reformats of the internal carotid arteries and posterior circulation then performed. COMPARISON: Merged With [facility], MR, MR BRAIN (PITUITARY) WWO CON, 03/04/2023, 13:46. Merged With [facility], MR, MR ANGIO HEAD WO CON, 05/17/2020, 11:59. FINDINGS: Image quality: Excellent. Anterior circulation: Intracranial internal carotid arteries demonstrate normal size and intraluminal flow signal. The flow within the paired anterior cerebral arteries is normal and symmetric. The flow within the middle cerebral arteries is normal and symmetric. The anterior communicating artery is seen. No stenoses, occlusions, or aneurysms. Posterior circulation: Visualized portions of the vertebral arteries demonstrate normal caliber, and join to form a normal appearing basilar artery. The flow within the posterior cerebral arteries is normal and symmetric. No stenoses, occlusions, or aneurysms. IMPRESSION: Normal MRA head Dictated by: Wong Robles M.D. on 03/04/2023 at 16:08 Approved by: Wong Robles M.D. on 03/04/2023 at 16:13
--- NOTE | 2023-03-04 | DI.MRI.S_ITS ---
PROCEDURE: MR BRAIN (PITUITARY) WWO CON INDICATIONS: New daily persistent headache (NDPH) TECHNIQUE: Noncontrast sagittal and axial FLAIR, axial gradient echo, axial diffusion and ADC through the brain. Thin-slice sagittal and coronal T1 spin echo, coronal T2 fast spin echo through the pituitary. After the administration contrast, optional dynamic coronal T1 spin echo, thin-slice coronal and sagittal T1 spin echo images through the pituitary fossa; axial and coronal and sagittal T1 spin echo with fat saturation through the brain. COMPARISON: None. FINDINGS: Image quality: Degraded by motion artifact. Pituitary Gland: Pituitary parenchymal enhancement is diffusely heterogeneous without definite enhancement abnormalities. Pituitary stalk is within normal limits. CSF Spaces: Ventricles are normal in size and shape. Basal cisterns are patent. No extra-axial fluid collections. Brain: No intracranial bleeds or mass effects. Mild diffuse cerebral volume loss. Mild degree of patchy high FLAIR signal within the periventricular and subcortical white matter. No abnormal intracranial enhancement. Vázquez-white matter interface is intact. Diffusion weighted images demonstrate no acute ischemic insults. Brainstem is normal. Normal intravascular flow voids are present. Skull and face: Calvarial marrow is normal in signal. Orbits appear normal. Sinuses: Sinuses and mastoids are clear. IMPRESSION: 1. Volume loss and small vessel ischemic disease. 2. No evidence of pituitary neoplasm. 3. No acute process. No recent infarct. Dictated by: Hussein Fuchs M.D. on 03/04/2023 at 14:40 Transcribed by: TUYET on 03/04/2023 at 14:42 Approved by: Hussein Fuchs M.D. on 03/04/2023 at 16:42
== END ==
PROVIDERS: PCP Family Medicine; Referring Provider Psychiatry & Neurology Neurology; Visit Provider Psychiatry & Neurology Neurology
DX: G44.52 New daily persistent headache (NDPH) (principal)
CPT/HCPCS: 70544; 70553

== ENCOUNTER → 2023-03-25 13:17 | Outpatient (CLI) | payer MEDICARE, OTHER, SELFPAY ==
--- NOTE | 2023-03-25 | DI.US.S_ITS ---
PROCEDURE: US PERIP VENOUS LOW EXTREM LT INDICATIONS: F/U DVT TECHNIQUE: Real-time imaging, as well as color and pulse Doppler interrogation, were performed of the lower extremity deep veins from the inguinal ligament to the popliteal fossa. COMPARISON: [facility], , [facility] VENOUS LOW EXTREM LT, 02/18/2023, 15:13. FINDINGS: Occlusive deep venous thrombosis can be seen involving the distal femoral vein and the popliteal vein. Calcification can be seen within this region. This is stable compared to the prior examination. No more proximal deep venous thrombosis can be seen. IMPRESSION: Stable chronic left lower extremity deep venous thrombosis, with occlusive thrombus involving the distal femoral vein and the popliteal vein. Dictated by: Campos Shipman M.D. on 03/25/2023 at 16:32 Approved by: Campos Shipman M.D. on 03/25/2023 at 16:33
== END ==
PROVIDERS: PCP Family Medicine; Referring Provider Family Medicine; Visit Provider Family Medicine
DX: I82.512 Chronic embolism and thrombosis of left femoral vein (principal); I82.532 Chronic embolism and thrombosis of left popliteal vein
CPT/HCPCS: 93971

== ENCOUNTER → 2023-06-24 13:14 | Outpatient (CLI) | payer MEDICARE, OTHER, SELFPAY ==
--- NOTE | 2023-06-24 13:16 | DI.US.S_ITS ---
PROCEDURE: US PERIP VENOUS LOW EXTREM LT INDICATIONS: FOLLOW UP LEFT LEG DVT TECHNIQUE: Real-time imaging, as well as color and pulse Doppler interrogation, were performed of the lower extremity deep veins from the inguinal ligament to the popliteal fossa, with documentation of the visualized calf veins. COMPARISON: [facility], , [facility] VENOUS LOW EXTREM LT, 03/25/2023, 13:43. FINDINGS: The greater saphenous vein, common femoral vein, and deep femoral vein are normally compressible, and free of intraluminal thrombus. The mid and distal superficial femoral vein are occluded. Calcifications are noted in the proximal middle superficial femoral vein. The popliteal vein is partially occluded. IMPRESSION: 1. Persistent occlusion of the superficial femoral vein. 2. Partial occlusion of the popliteal vein, previously completely occluded on 03/25/2023. Dictated by: Wong Robles M.D. on 06/24/2023 at 17:16 Approved by: Wong Robles M.D. on 06/24/2023 at 17:19
== END ==
PROVIDERS: PCP Family Medicine; Referring Provider Family Medicine; Visit Provider Family Medicine
DX: I82.432 Acute embolism and thrombosis of left popliteal vein (principal); I82.812 Embolism and thrombosis of superficial veins of left lower extremity
CPT/HCPCS: 93971

== ENCOUNTER → 2023-09-15 13:20 | Outpatient (CLI) | payer MEDICARE, OTHER, SELFPAY ==
--- NOTE | 2023-09-15 | DI.US.S_ITS ---
PROCEDURE: US PERIPH VENOUS LOW EXTREM LT INDICATIONS: 3MO FOLLOW UP OF DVT TECHNIQUE: Real-time imaging, as well as color and pulse Doppler interrogation, were performed of the lower extremity deep veins from the inguinal ligament to the popliteal fossa, with documentation of the visualized calf veins. COMPARISON: [facility], [facility] VENOUS LOW EXTREM LT, 06/24/2023, 13:29. FINDINGS: There is improved but persistent thrombus in the mid superficial femoral and popliteal veins consistent with deep venous thrombosis. IMPRESSION: Improved but persistent DVT. Dictated by: Aimee Moseley M.D. on 09/15/2023 at 16:12 Approved by: Aimee Moseley M.D. on 09/15/2023 at 16:13
== END ==
PROVIDERS: PCP Family Medicine; Referring Provider Family Medicine; Visit Provider Family Medicine
DX: I82.432 Acute embolism and thrombosis of left popliteal vein (principal); I82.812 Embolism and thrombosis of superficial veins of left lower extremity
CPT/HCPCS: 93971

== ENCOUNTER → 2023-12-16 13:11 | Outpatient (CLI) | payer MEDICARE, OTHER, SELFPAY ==
--- NOTE | 2023-12-16 13:13 | DI.US.S_ITS ---
PROCEDURE: US PERIP VENOUS LOW EXTREM LT INDICATIONS: PERSISTENT DVT LEFT LEG TECHNIQUE: Real-time imaging, as well as color and pulse Doppler interrogation, were performed of the lower extremity deep veins from the inguinal ligament to the popliteal fossa, with documentation of the visualized calf veins. COMPARISON: [facility], , [facility] VENOUS LOW EXTREM LT, 09/15/2023, 13:30. FINDINGS: There is persistent appearance of occlusion within the mid superficial femoral vein as well as the popliteal vein, relatively unchanged compared to prior exam. IMPRESSION: Persistent appearance of deep venous thrombosis in the mid superficial femoral and popliteal veins relatively stable compared to most recent prior exam. Dictated by: Aimee Moseley M.D. on 12/16/2023 at 16:44 Approved by: Aimee Moseley M.D. on 12/16/2023 at 16:45
== END ==
PROVIDERS: PCP Family Medicine; Referring Provider Family Medicine; Visit Provider Family Medicine
DX: I82.532 Chronic embolism and thrombosis of left popliteal vein (principal); I82.512 Chronic embolism and thrombosis of left femoral vein
CPT/HCPCS: 93971

== ENCOUNTER → 2024-03-09 | Outpatient (CLI) | payer MEDICARE, OTHER, SELFPAY ==
--- NOTE | 2024-03-09 13:14 | DI.US.S_ITS ---
PROCEDURE: US PERIPH VENOUS LOW EXTREM LT INDICATIONS: PERSISTANT DVT TECHNIQUE: Real-time imaging, as well as color and pulse Doppler interrogation, were performed of the lower extremity deep veins from the inguinal ligament to the popliteal fossa, with documentation of the visualized calf veins. COMPARISON: [facility], US, US [facility] VENOUS LOW EXTREM LT, 12/16/2023, 13:21. FINDINGS: Persistent deep venous thrombus is seen at the mid femoral vein to the popliteal vein with areas of occlusion. Some calcifications are seen suggesting chronic post thrombotic changes. The remaining visualized deep veins are patent. IMPRESSION: Persistent deep venous thrombus versus chronic post thrombotic changes at the mid femoral vein to the popliteal vein, not significantly changed when compared to the prior ultrasound. Approved by: Clinton Sanders M.D. on 03/09/2024 at 14:58
== END ==
PROVIDERS: PCP Family Medicine; Referring Provider Family Medicine; Visit Provider Family Medicine
DX: I82.532 Chronic embolism and thrombosis of left popliteal vein (principal); I82.512 Chronic embolism and thrombosis of left femoral vein
CPT/HCPCS: 93971

== ENCOUNTER → 2024-10-19 13:20 | Outpatient (CLI) | payer MEDICARE, OTHER, SELFPAY ==
--- NOTE | 2024-10-19 13:22 | DI.US.S_ITS ---
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 COMPARISON: [facility], , [facility] VENOUS LOW EXTREM LT, 03/09/2024, 13:42. FINDINGS: Chronic calcification in the mid femoral vein with shadowing. There is prominent intimal hyperplasia and calcification of the mid to distal femoral vein. Nonocclusive clot is seen in popliteal vein. The popliteal vein is compressible. IMPRESSION: Evolution of chronic thrombus in the mid to distal femoral vein and chronic, nonocclusive thrombus in the popliteal vein. Dictated by: Jessica Mohamud M.D. on 10/21/2024 at 21:01 Approved by: Jessica Mohamud M.D. on 10/21/2024 at 21:10
== END ==
PROVIDERS: PCP Family Medicine; Referring Provider Family Medicine; Visit Provider Family Medicine
DX: I82.532 Chronic embolism and thrombosis of left popliteal vein (principal); I82.512 Chronic embolism and thrombosis of left femoral vein
CPT/HCPCS: 76882

== ENCOUNTER → 2025-04-19 13:13 | Outpatient (CLI) | payer MEDICARE, OTHER, SELFPAY ==
--- NOTE | 2025-04-19 13:14 | DI.US.S_ITS ---
PROCEDURE: US PERIP VENOUS LOW EXTREM LT INDICATIONS: Clinical suspicion of deep vein thrombosis TECHNIQUE: Real-time imaging, as well as color and pulse Doppler interrogation, were performed of the lower extremity deep veins from the inguinal ligament to the popliteal fossa, with documentation of the visualized calf veins. COMPARISON: [facility], , [facility] VENOUS LOW EXTREM LT, 10/19/2024, 14:15. FINDINGS: Overall there has been some progression or worsening of previously reported chronic deep vein thrombosis now with new or worsened noncompressibility, partially occlusive thrombosis of the mid femoral vein into the distal femoral vein and continued or worsen occlusive thrombus of the left popliteal vein. Posterior tibial and peroneal veins are not visualized and may be thrombosed as well. IMPRESSION: Progressed deep vein thrombosis left lower extremity as discussed above. The findings were called to the office of Dr. Art Jimenez following the exam on 04/19/2025 by the cytotechnologist/cytology supervisor, I also called the office 04/20/2025 at 10:32 a.m. Dictated by: Benito Singh M.D. on 04/20/2025 at 10:21 Approved by: Benito Singh M.D. on 04/20/2025 at 10:33
== END ==
LOC: US 13:13
PROVIDERS: PCP Family Medicine; Referring Provider Family Medicine; Visit Provider Family Medicine
DX: I82.512 Chronic embolism and thrombosis of left femoral vein (principal); I82.532 Chronic embolism and thrombosis of left popliteal vein
CPT/HCPCS: 93971